=== PATIENT | male | born 1960 | race Two or more races ===

== ENCOUNTER 2016-09-24 11:31 | Inpatient (IN) | payer MEDICAID ==
[~2016-09-24] VITALS: Ht 175.3 cm; Wt 77.1 kg
[2016-09-24 11:35] VITALS: BP 130/81
[2016-09-24 12:06] LABS: APPEARANCE,URINE CLEAR; KETONES,URINE 1+ (NEGATIVE); LEUKOCYTE ESTERASE ,URINE 1+ (NEGATIVE); MEAN CORPUSCULAR HEMOGLOBIN 27.7 PG (27.0-31.0); MEAN CORPUSCULAR HGB CONC 31.4 G/DL (32.0-36.0); MEAN CORPUSCULAR VOLUME 88 FL (80-99); MEAN PLATELET VOLUME 10.1 FL (6.5-10.1); NITRITE,URINE POSITIVE (NEGATIVE); PH,URINE 6.5 (4.5-8.0); PLATELET COUNT 41 K/UL (150-450); PROTEIN,URINE 1+ (NEGATIVE); RED BLOOD COUNT 2.16 M/UL (4.70-6.10); RED CELL DISTRIBUTION WIDTH 21.4 % (11.6-14.8); UROBILINOGEN,URINE 12 MG/DL (0.0-1.0); WHITE BLOOD COUNT 4.4 K/UL (4.8-10.8)
[2016-09-24 12:12] LABS: INR 1.4 (0.9-1.1); PROTHROMBIN TIME 14.8 SEC (9.30-11.50)
[2016-09-24 12:15] LABS: ICTOTEST POS; RBC,URINE 0-2 /HPF (0 - 0); SQUAMOUS EPITHELIAL CELL,UR FEW /LPF (NONE/OCC)
[2016-09-24 12:17] LABS: ALANINE AMINOTRANSFERASE 14 U/L (3-41); ALBUMIN/GLOBULIN RATIO 0.4 (1.0-2.7); ANION GAP 19 (5-15); ASPARTATE AMINO TRANSFERASE 64 U/L (5-40); CALCIUM 7.4 mg/dL (8.6-10.2); CARBON DIOXIDE 21 mEQ/L (20-30); CHLORIDE 96 mEQ/L (98-107); CREATININE 0.7 mg/dL (0.7-1.2); GLOMERULAR FILTRATION RATE > 60 mL/min (>60); HEMOLYSIS 0; LIPASE 21 U/L (< 60); POTASSIUM 3.5 mEQ/L (3.4-4.9); SODIUM 136 mEQ/L (135-145); TOTAL PROTEIN 6.7 g/dL (6.6-8.7); TROPONIN I < 0.30 ng/mL (<=0.30)
[2016-09-24 12:19] LABS: AMMONIA 76 umol/L (16-60)
[2016-09-24 12:28] LABS: BAND NEUTROPHILS % (MANUAL) 1 % (0-8); EOSINOPHILS % (MANUAL) 1 % (0-3); LYMPHOCYTES % (MANUAL) 32 % (20-45); NEUTROPHILS % (MANUAL) 63 % (45-75); TOTAL CELLS COUNTED 100
[2016-09-24 12:29] LABS: ANISOCYTOSIS 1+; BASOPHILS % (MANUAL) 0 % (0-2); HYPOCHROMASIA 1+; MICROCYTES OCCASIONAL; PLATELET ESTIMATE DECREASED; PLATELET MORPHOLOGY NORMAL
[2016-09-24 12:30] LABS: PATH BLOOD SMEAR/OMC Y
[2016-09-24 12:44] LABS: BILIRUBIN,DIRECT 6.4 mg/dL (0.1-0.3)
--- NOTE | 2016-09-24 13:55 | Emergency Room Report ---
History of Present Illness General Chief Complaint: General Complaint Source: Patient Present Illness HPI Patient is a 56-year-old male who presented after having increased generalized weakness and decreased appetite. Patient poorly had not been eating for approximately one-week. The patient had been increasingly weak and had been falling. Patient fell twice. Patient had reported history of alcohol abuse and drinks daily. The patient has reported last alcohol use yesterday. He had become increasingly confused Allergies: Coded Allergies: No Known Allergies (Unverified , 09/24/16) Patient History Reviewed Nursing Documentation: PMH: Agreed, PSxH: Agreed Nursing Documentation-PMH Past Medical History: No Stated History Review of Systems All Other Systems: limited - by mental status Physical Exam Vital Signs Date Time Temp Pulse Resp B/P Pulse Ox O2 Delivery O2 Flow Rate FiO2 09/24/16 11:32 98.2 104 16 134/81 97 Room Air General Appearance: alert, mild distress, Chronically Ill Eyes: bilateral eye scleral icterus ENT: normal pharynx Neck: supple Respiratory: lungs clear, normal breath sounds Cardiovascular #1: normal peripheral pulses, regular rate, rhythm Gastrointestinal: normal bowel sounds, non tender, soft Musculoskeletal: normal inspection, back normal, gait/station normal Neurologic: normal inspection, alert, motor weakness, other - asterixis Skin: jaundice Medical Decision Making Diagnostic Impression: Primary Impression: Severe anemia Additional Impressions: Pancytopenia Alcohol abuse ER Course Patient presented for generalized weakness. Differential diagnosis included was not limited to anemia, urinary tract infection, electrolyte abnormality, hypothyroidism, myocardial infarction, myasthenia gravis, dehydration, among others. Because of complexity of patient's case laboratory testing and imaging studies were ordered. The patient noted be markedly anemic with a hemoglobin of 6.0 patient was also noted to be thrombocytopenic. The patient was consented for blood. The patient agreed to transfusion. The patient was noted be mildly encephalopathic. CT the head read by radiologist showed atrophic changes without evident intracranial hemorrhage mass effect or edema. Dr. Candido Oneill was contacted for inpatient management EKG Diagnostic Results Rate: normal Rhythm: NSR ST Segments: other - prolonged qt Rhythm Strip Diag. Results EP Interpretation: yes Rhythm: NSR, no PVC's, no ectopy Last Vital Signs Date Time Temp Pulse Resp B/P Pulse Ox O2 Delivery O2 Flow Rate FiO2 09/24/16 11:35 98.2 101 16 130/81 95 Room Air Status: unchanged Disposition: ADMITTED INPATIENT Condition: Serious Referrals: NOT CHOSEN IPA/,REFERRING (PCP) Ken Shaffer Sep 24, 2016 13:55
[2016-09-24] MEDS ORDERED: FISH OIL300 M1 PO (14:56)
[2016-09-24 15:24] VITALS: BP 116/80
--- NOTE | 2016-09-24 15:41 | History & Physical ---
History and Physical History & Physicial HP dictated #[id number] ALICIA DASH Sep 24, 2016 15:41
[2016-09-24] MEDS ORDERED: Milk of Magnesia 30ml Ud ORAL PRN (15:45)
[2016-09-24] MEDS ORDERED: LORazepam Inj 2mg/ml 1ml IV PRN (15:45)
[2016-09-24 16:00] VITALS: BP 126/77
[2016-09-24] MEDS: Pantoprazole Inj IV SCH (16:00)
[2016-09-24 16:40] VITALS: BP 126/75
[2016-09-24 21:00] VITALS: BP 126/69
--- NOTE | 2016-09-24 21:15 | History and Physical Report ---
DATE OF ADMISSION: 09/24/2016 CHIEF COMPLAINT: Weakness and frequent falls. HISTORY OF PRESENT ILLNESS: This is a 56-year-old male with a history of alcohol abuse, who presents to the emergency room with frequent falls and weakness. He has been found to be anemic with hematocrit of 19 and hemoglobin of 6. He is also in liver failure with bilirubin of 9.4. The patient reported that he was in [facility] about a year ago and he was never told about the problem of his liver. Currently, the patient drinks jimmy heavily and has been using alcohol for about 20 years now. PAST MEDICAL HISTORY: Noncontributory except above. MEDICATIONS: None. ALLERGIES: No known drug allergies. SOCIAL HISTORY: The patient lives with some friends. He is an ex-smoker. REVIEW OF SYSTEMS: As above. PHYSICAL EXAMINATION: GENERAL: The patient is a 56-year-old man, in no acute distress. VITAL SIGNS: Blood pressure is 116/80, pulse 88, and temperature 97.8 degrees. HEENT: Pale conjunctivae. Anicteric sclerae. NECK: Supple. LUNGS: Clear to auscultation. HEART: S1 and S2 are without murmurs or rubs. ABDOMEN: Soft and nontender. EXTREMITIES: Bilateral pedal edema. LABORATORY FINDINGS: Chemistry panel shows serum sodium of 136, potassium 3.5, chloride 96, CO2 21, BUN 6, and creatinine 0.7. Albumin is 7.6. Total bilirubin is 9.4. Direct bilirubin is 6.4. AST is 64 and ALT 13. Lipase is 21. ASSESSMENT: This is a 56-year-old male with a history of alcohol abuse, who was admitted with severe anemia and it could be iron deficiency or gastrointestinal bleed. The patient could have B12 deficiency, although less likely. He has also liver failure, possibly alcoholic cirrhosis of the liver. PLAN: The patient will be admitted. He has been transfused. His hematocrit and hemoglobin will be followed closely. We may give him lactulose for his elevated ammonia level, however his mentation is clear at this point. Candido Oneill M.D. : Jolynn JOB#: [id number] CC: REGULO
[2016-09-25] VITALS: BP 118/68
[2016-09-25 04:00] VITALS: BP 123/67
[2016-09-25 07:17] LABS: MEAN CORPUSCULAR HEMOGLOBIN 28.7 PG (27.0-31.0); MEAN CORPUSCULAR HGB CONC 32.5 G/DL (32.0-36.0); MEAN CORPUSCULAR VOLUME 88 FL (80-99); MEAN PLATELET VOLUME 8.9 FL (6.5-10.1); PLATELET COUNT 24 K/UL (150-450); RED CELL DISTRIBUTION WIDTH 18.7 % (11.6-14.8); WHITE BLOOD COUNT 3.3 K/UL (4.8-10.8)
[2016-09-25 07:28] LABS: ALANINE AMINOTRANSFERASE 13 U/L (3-41); ALBUMIN/GLOBULIN RATIO 0.5 (1.0-2.7); ANION GAP 16 (5-15); ASPARTATE AMINO TRANSFERASE 60 U/L (5-40); CALCIUM 7.3 mg/dL (8.6-10.2); CARBON DIOXIDE 22 mEQ/L (20-30); CHLORIDE 101 mEQ/L (98-107); CREATININE 0.6 mg/dL (0.7-1.2); GLOMERULAR FILTRATION RATE > 60 mL/min (>60); HEMOLYSIS 3; POTASSIUM 3.5 mEQ/L (3.4-4.9); SODIUM 139 mEQ/L (135-145)
[2016-09-25 07:53] LABS: BILIRUBIN,DIRECT 5.9 mg/dL (0.1-0.3)
[2016-09-25 08:00] VITALS: BP 143/90
[2016-09-25 08:02] LABS: HEMOGLOBIN A1C 4.4 % (< 6.0)
--- NOTE | 2016-09-25 09:20 | Diagnostic Imaging Report ---
Indication: Head pain Technique: Continuous helical CT scanning of the head was performed utilizing automated exposure control without intravenous contrast material. Axial and coronal reconstructions were obtained. Comparison: None CT dose: Total DLP 1351 mGycm; CTDI vol 70.4 mGy Findings: There is no acute intracranial hemorrhage, mass effect or cortical edema. The ventricles, cisterns and sulci are prominent consistent with atrophy. Minimal periventricular hypoattenuation is seen, a nonspecific finding, suggestive of chronic ischemic microvascular changes. The posterior fossa and fourth ventricle are unremarkable. Sellar and suprasellar regions are grossly unremarkable. Visualized mastoid air cells and paranasal sinuses are unremarkable. No focal lesions of the bony calvarium or soft tissues of the scalp are seen. Impression: No evidence of acute intracranial hemorrhage, mass effect or cortical edema. MRI may be obtained for more sensitive evaluation as clinically indicated. Atrophy and mild nonspecific periventricular hypoattenuation suggestive of chronic ischemic microvascular changes. The CT scanner at [facility] is accredited by the [employer] and the scans are performed using protocols designed to limit radiation exposure to as low as reasonably achievable to attain images of sufficient resolution adequate for diagnostic evaluation.
[2016-09-25] MEDS: Pantoprazole Inj IV SCH (09:54)
[2016-09-25 10:06] LABS: ANISOCYTOSIS 1+; BAND NEUTROPHILS % (MANUAL) 0 % (0-8); BASOPHILS % (MANUAL) 0 % (0-2); EOSINOPHILS % (MANUAL) 3 % (0-3); HYPOCHROMASIA 1+; LYMPHOCYTES % (MANUAL) 16 % (20-45); NEUTROPHILS % (MANUAL) 76 % (45-75); PLATELET ESTIMATE DECREASED; PLATELET MORPHOLOGY NORMAL; TOTAL CELLS COUNTED 100
--- NOTE | 2016-09-25 10:27 | Diagnostic Imaging Report ---
Indication: Abdominal pain Technique: CT of the abdomen and pelvis utilizing automated exposure control with intravenous contrast. Venous scanning performed. CT dose: Total DLP 1125 mGycm; CTDI vol 18.8 mGy Comparison: None Findings: Lung bases are clear. The liver is enlarged with diffuse fatty infiltration. There is recanalization of the paraumbilical vein. Splenic and upper abdominal gastroesophageal varices are seen with splenorenal shunting. The spleen is mildly enlarged measuring 13 cm. The adrenal glands, kidneys and pancreas are grossly unremarkable. Questionable densities are noted in the gallbladder. There is mild wall thickening versus underdistention of the stomach. There is mild apparent wall thickening of the ascending and proximal transverse colon. Mild to moderate ascites is seen. Atherosclerotic changes are present. The abdominal aorta is normal in caliber. There is no free intraperitoneal air. Bladder is not well distended. Small fat-containing bilateral inguinal hernias are seen. There is subcutaneous edema. Degenerative changes of the spine are present. Impression: Wall thickening of the ascending and proximal transverse colon could represent nonspecific colitis. Clinical correlation recommended. Hepatosplenomegaly. Diffuse fatty infiltration of the liver. Portal hypertension with upper abdominal varices and mild to moderate ascites. Wall thickening versus underdistention of the stomach although the latter is favored. Clinical correlation recommended. Other findings as above. The CT scanner at [facility] is accredited by the [employer] and the scans are performed using protocols designed to limit radiation exposure to as low as reasonably achievable to attain images of sufficient resolution adequate for diagnostic evaluation.
[2016-09-25 11:39] VITALS: BP 126/77
[2016-09-25] MEDS ORDERED: Phytonadione 10 mg/mL 1ml amp SUBQ ONE (12:15)
--- NOTE | 2016-09-25 12:34 | General Progress Note ---
Assessment/Plan Problem List: (1) Weakness ICD Codes: R53.1 - Weakness SNOMED: 47436522 (2) Severe anemia ICD Codes: D64.9 - Anemia, unspecified SNOMED: 314152739 (3) Alcohol abuse ICD Codes: F10.10 - Alcohol abuse, uncomplicated SNOMED: 06574164 (4) Pancytopenia ICD Codes: D61.818 - Other pancytopenia SNOMED: 010846332 (5) Alcoholic liver disease ICD Codes: K70.9 - Alcoholic liver disease, unspecified SNOMED: 41206524 Assessment/Plan change to regular diet follow H/H check B12 and folate Advised to stop drinking Subjective Allergies: Coded Allergies: No Known Allergies (Unverified , 09/24/16) Subjective feels weak Objective Last 24 Hour Vital Signs Date Time Temp Pulse Resp B/P Pulse Ox O2 Delivery O2 Flow Rate FiO2 09/25/16 11:39 98.4 104 18 126/77 94 Room Air 09/25/16 08:00 97.3 109 20 143/90 96 Room Air 09/25/16 04:00 97.7 89 20 123/67 96 Room Air 09/25/16 00:00 97.5 95 20 118/68 94 Room Air 09/24/16 21:00 97.2 96 20 126/69 97 Room Air 09/24/16 16:40 96.6 88 18 126/75 99 Room Air 09/24/16 16:00 97.2 88 18 126/77 96 Room Air 09/24/16 15:55 87 12 130/64 96 Room Air 09/24/16 15:24 97.8 88 13 116/80 99 Room Air 09/24/16 15:00 97.9 87 12 09/24/16 14:45 98.0 91 14 09/24/16 14:30 97.6 88 15 09/24/16 14:25 97.9 88 16 09/24/16 14:15 98.2 89 15 09/24/16 14:01 97.8 90 14 Intake and Output 09/24/16 09/25/16 19:00 07:00 Intake Total 0 ml 500 ml Output Total 30 ml Balance -30 ml 500 ml Intake Oral 0 ml Blood Product 500 ml Output Urine Total 30 ml # Voids 1 Laboratory Tests 09/25/16 05:15: White Blood Count 3.3L, Red Blood Count 2.50L, Hemoglobin 7.2L, Hematocrit 22.1L , Mean Corpuscular Volume 88, Mean Corpuscular Hemoglobin 28.7, Mean Corpuscular Hemoglobin Concent 32.5, Red Cell Distribution Width 18.7H, Platelet Count 24L, Mean Platelet Volume 8.9, Neutrophils (%) (Auto) , Lymphocytes (%) (Auto) , Monocytes (%) (Auto) , Eosinophils (%) (Auto) , Basophils (%) (Auto) , Differential Total Cells Counted 100, Neutrophils % ( Manual) 76H, Lymphocytes % (Manual) 16L, Monocytes % (Manual) 5, Eosinophils % ( Manual) 3, Basophils % (Manual) 0, Band Neutrophils 0, Platelet Estimate DecreasedL, Platelet Morphology Normal, Hypochromasia 1+, Anisocytosis 1+, Sodium Level 139, Potassium Level 3.5, Chloride Level 101, Carbon Dioxide Level 22, Anion Gap 16H, Blood Urea Nitrogen 5L, Creatinine 0.6L, Estimat Glomerular Filtration Rate > 60, Glucose Level 60L, Hemoglobin A1c 4.4, Calcium Level 7.3L , Total Bilirubin 8.7H, Direct Bilirubin 5.9H, Aspartate Amino Transf (AST/SGOT ) 60H, Alanine Aminotransferase (ALT/SGPT) 13, Alkaline Phosphatase 98, Total Protein 6.0L, Albumin 2.0L, Globulin 4.0, Albumin/Globulin Ratio 0.5L Height (Feet): 5 Height (Inches): 9.00 Weight (Pounds): 170 Cardiovascular: normal rate Respiratory/Chest: lungs clear Edema: 2+ Generalized ALICIA DASH Sep 25, 2016 12:34
[2016-09-25 15:53] VITALS: BP 122/75
[2016-09-25 20:00] VITALS: BP 129/78
[2016-09-25] MEDS: Zoysn 3.37gm in D5W 110ml IVPB SCH (22:33)
[2016-09-26] VITALS: BP 138/86
[2016-09-26 01:15] LABS: APPEARANCE,URINE CLOUDY; KETONES,URINE 1+ (NEGATIVE); LEUKOCYTE ESTERASE ,URINE 2+ (NEGATIVE); NITRITE,URINE POSITIVE (NEGATIVE); PH,URINE 5 (4.5-8.0); PROTEIN,URINE 2+ (NEGATIVE); UROBILINOGEN,URINE 12 MG/DL (0.0-1.0)
[2016-09-26 01:25] LABS: BACTERIA,URINE FEW /HPF; MUCUS,URINE MANY /LPF (NONE/OCC); SQUAMOUS EPITHELIAL CELL,UR FEW /LPF (NONE/OCC)
[2016-09-26 01:26] LABS: ICTOTEST POS
[2016-09-26 04:00] VITALS: BP 138/83
[2016-09-26] MEDS: Zoysn 3.37gm in D5W 110ml IVPB SCH ×3 (05:07→20:59)
[2016-09-26 06:53] LABS: ALANINE AMINOTRANSFERASE 14 U/L (3-41); ALBUMIN/GLOBULIN RATIO 0.5 (1.0-2.7); ANION GAP 14 (5-15); ASPARTATE AMINO TRANSFERASE 61 U/L (5-40); CALCIUM 7.3 mg/dL (8.6-10.2); CARBON DIOXIDE 23 mEQ/L (20-30); CHLORIDE 96 mEQ/L (98-107); CREATININE 0.7 mg/dL (0.7-1.2); GLOMERULAR FILTRATION RATE > 60 mL/min (>60); HEMOLYSIS 2; POTASSIUM 3.2 mEQ/L (3.4-4.9); SODIUM 133 mEQ/L (135-145); TOTAL PROTEIN 6.3 g/dL (6.6-8.7)
[2016-09-26 06:56] LABS: MEAN CORPUSCULAR HEMOGLOBIN 28.3 PG (27.0-31.0); MEAN CORPUSCULAR HGB CONC 31.9 G/DL (32.0-36.0); MEAN CORPUSCULAR VOLUME 89 FL (80-99); MEAN PLATELET VOLUME 9.5 FL (6.5-10.1); PLATELET COUNT 24 K/UL (150-450); RED BLOOD COUNT 2.64 M/UL (4.70-6.10); RED CELL DISTRIBUTION WIDTH 19.8 % (11.6-14.8); WHITE BLOOD COUNT 3.4 K/UL (4.8-10.8)
[2016-09-26 07:07] LABS: BILIRUBIN,DIRECT 8.1 mg/dL (0.1-0.3)
[2016-09-26 07:22] LABS: HEMOLYSIS 0; IRON 91 ug/dL (59-158); TOTAL IRON BINDING CAPACITY 157 ug/dL (250-400)
[2016-09-26 08:00] VITALS: BP 131/86
[2016-09-26 08:16] LABS: ANISOCYTOSIS 1+; BAND NEUTROPHILS % (MANUAL) 0 % (0-8); BASOPHILS % (MANUAL) 0 % (0-2); EOSINOPHILS % (MANUAL) 1 % (0-3); HYPOCHROMASIA 1+; LYMPHOCYTES % (MANUAL) 14 % (20-45); NEUTROPHILS % (MANUAL) 79 % (45-75); PLATELET ESTIMATE DECREASED; PLATELET MORPHOLOGY NORMAL; POLYCHROMASIA OCCASIONAL; TOTAL CELLS COUNTED 100
[2016-09-26] MEDS: Pantoprazole Inj IV SCH (09:05)
[2016-09-26 11:37] VITALS: BP 137/86
--- NOTE | 2016-09-26 12:29 | General Progress Note ---
Assessment/Plan Problem List: (1) Weakness ICD Codes: R53.1 - Weakness SNOMED: 08632049 (2) Severe anemia ICD Codes: D64.9 - Anemia, unspecified SNOMED: 843329369 (3) Alcohol abuse ICD Codes: F10.10 - Alcohol abuse, uncomplicated SNOMED: 08644550 (4) Pancytopenia ICD Codes: D61.818 - Other pancytopenia SNOMED: 743844099 (5) Alcoholic liver disease ICD Codes: K70.9 - Alcoholic liver disease, unspecified SNOMED: 64645577 (6) Fever ICD Codes: R50.9 - Fever, unspecified SNOMED: 207989358 Assessment/Plan check cultures Abxs follow H/H check B12 and folate Subjective Allergies: Coded Allergies: No Known Allergies (Unverified , 09/24/16) Subjective slightly better Objective Last 24 Hour Vital Signs Date Time Temp Pulse Resp B/P Pulse Ox O2 Delivery O2 Flow Rate FiO2 09/26/16 11:37 98.6 102 20 137/86 97 Room Air 09/26/16 08:00 97.7 115 18 131/86 99 Room Air 09/26/16 04:00 99.7 101 18 138/83 93 Room Air 09/26/16 00:00 97.9 86 18 138/86 95 Room Air 09/26/16 00:00 97.9 86 18 138/86 95 Room Air 09/25/16 21:46 100.0 09/25/16 20:00 100.7 113 20 129/78 94 Room Air 09/25/16 15:53 99.7 102 18 122/75 97 Room Air Intake and Output 09/25/16 09/26/16 19:00 07:00 Intake Total 960 ml 137.5 ml Balance 960 ml 137.5 ml Intake Oral 960 ml IV Total 137.5 ml # Voids 4 2 Laboratory Tests 09/25/16 20:14: Urine Color Brown, Urine Appearance Cloudy, Urine pH 5, Urine Specific Stur[place] 1.020, Urine Protein 2+H, Urine Glucose (UA) Negative, Urine Ketones 1+H, Urine Occult Blood 1+H, Urine Nitrite PositiveH, Urine Bilirubin 3+H, Urine Ictotest Pos, Urine Urobilinogen 12H, Urine Leukocyte Esterase 2+H, Urine RBC 2-4H, Urine WBC 2-4, Urine Squamous Epithelial Cells Few, Urine Bacteria Few, Urine Mucus ManyH 09/26/16 05:25: White Blood Count 3.4L, Red Blood Count 2.64L, Hemoglobin 7.5L, Hematocrit 23.4L , Mean Corpuscular Volume 89, Mean Corpuscular Hemoglobin 28.3, Mean Corpuscular Hemoglobin Concent 31.9L, Red Cell Distribution Width 19.8H, Platelet Count 24L, Mean Platelet Volume 9.5, Neutrophils (%) (Auto) , Lymphocytes (%) (Auto) , Monocytes (%) (Auto) , Eosinophils (%) (Auto) , Basophils (%) (Auto) , Differential Total Cells Counted 100, Neutrophils % ( Manual) 79H, Lymphocytes % (Manual) 14L, Monocytes % (Manual) 6, Eosinophils % ( Manual) 1, Basophils % (Manual) 0, Band Neutrophils 0, Platelet Estimate DecreasedL, Platelet Morphology Normal, Polychromasia Occasional, Hypochromasia 1+, Anisocytosis 1+, Sodium Level 133L, Potassium Level 3.2L, Chloride Level 96L , Carbon Dioxide Level 23, Anion Gap 14, Blood Urea Nitrogen 5L, Creatinine 0.7 , Estimat Glomerular Filtration Rate > 60, Glucose Level 79, Calcium Level 7.3L , Iron Level 91, Total Iron Binding Capacity 157L, Percent Iron Saturation 58H, Unsaturated Iron Binding 66L, Total Bilirubin 12.1H, Direct Bilirubin 8.1H, Aspartate Amino Transf (AST/SGOT) 61H, Alanine Aminotransferase (ALT/SGPT) 14, Alkaline Phosphatase 104, Total Protein 6.3L, Albumin 2.1L, Globulin 4.2, Albumin/Globulin Ratio 0.5L, Vitamin B12 Level 1553H, Folate [Pending] Height (Feet): 5 Height (Inches): 9.00 Weight (Pounds): 170 Cardiovascular: normal rate Respiratory/Chest: lungs clear Edema: 2+ Generalized ALICIA DASH Sep 26, 2016 12:29
--- NOTE | 2016-09-26 15:10 | Wound Care Consultation ---
Wound Assessment Wound Assessment #1: Wound Number: #1 Wound Present on Admission: Yes New Wound: No Status Change of Wound: No Wound Location Body Site Modif: left, mid Wound Location Body Site: arm Wound Type: traumatic injury Elena Test: Does not Elena Wound Thickness: Full Thickness Wound Length: 7.0 Wound Width: 2.0 Wound Depth: utd Percent of Wound Chrisman/Red: 50 Percent of Wound Black/Brown: 50 - scab present. Wound Drainage Description: Serosanguineous Wound Drainage Amount: Moderate Wound Drainage Odor: None/Absent Tissue Surrounding Wound: Erythemic Wound General Appearance: Reddened, Blackened, Draining Wound Assessment #2: Wound Number: #2 Wound Present on Admission: Yes New Wound: No Status Change of Wound: No Wound Location Body Site Modif: left, anterior Wound Location Body Site: hand Wound Type: scab Elena Test: Does not Elena Wound Thickness: Full Thickness Wound Length: 1.0 Wound Width: 1.0 Wound Depth: utd Percent of Wound Black/Brown: 100 - scab Wound Drainage Amount: None Wound Drainage Odor: None/Absent Tissue Surrounding Wound: Intact Wound General Appearance: Blackened, Open to air, Clean/Dry Wound Assessment #3: Wound Number: #3 Wound Present on Admission: Yes New Wound: No Status Change of Wound: No Wound Location Body Site Modif: left Wound Location Body Site: knee Wound Type: traumatic injury - noted with scab. Elena Test: Does not Elena Wound Thickness: Full Thickness Wound Length: 2.0 Wound Width: 2.0 Wound Depth: utd Percent of Wound Black/Brown: 100 - scab Wound Drainage Amount: None Wound Drainage Odor: None/Absent Tissue Surrounding Wound: Erythemic Wound General Appearance: Open to air, Clean/Dry Wound Assessment #4: Wound Number: #4 Wound Present on Admission: Yes New Wound: No Status Change of Wound: No Wound Location Body Site Modif: right Wound Location Body Site: knee Wound Type: traumatic injury - scab Elena Test: Does not Elena Wound Thickness: Full Thickness Wound Length: 2.0 Wound Width: 2.0 Wound Depth: utd Percent of Wound Black/Brown: 100 - scab. Wound Drainage Amount: None Wound Drainage Odor: None/Absent Tissue Surrounding Wound: Intact Wound General Appearance: Reddened, Blackened Wound Comment #1 left mid arm traumatic injury wound. #2 left anterior hand scab. #3 left knee scab. #4 right knee scab. Recommendation. -Local wound care as ordered. -Keep scabs clean and dry. -Turn and reposition. -Optimize nutrition. -Offload affected sites. -Assess and notify MD for any changes of condition to skin. ADILSON JEFFRIES Sep 26, 2016 15:10
[2016-09-26 16:00] VITALS: BP 131/77
[2016-09-26] MEDS ORDERED: Tubing IV Secondary IV ONE (16:35)
[2016-09-26] MEDS ORDERED: NS 275ml ONE (16:35)
[2016-09-26 20:00] VITALS: BP 122/80
[2016-09-27] VITALS: BP 136/84
[2016-09-27 04:00] VITALS: BP 141/83
[2016-09-27] MEDS: Zoysn 3.37gm in D5W 110ml IVPB SCH ×2 (05:21→15:27)
[2016-09-27 07:29] VITALS: BP 135/95
[2016-09-27] MEDS: Pantoprazole Inj IV SCH (08:45)
[2016-09-27 11:19] VITALS: BP 127/82
[2016-09-27] MEDS ORDERED: CIPRO250 MG/51 PO (12:04)
[2016-09-27 12:08] LABS: OTHERS PATHOLOGIST COMMENT
--- NOTE | 2016-09-27 12:10 | Consultation ---
Consult Note Assessment/Plan Dc dictated # [id number] ALICIA DASH Sep 27, 2016 12:10
[2016-09-27 16:06] VITALS: BP 127/78
--- NOTE | 2016-09-28 03:00 | Discharge Summary ---
DATE OF ADMISSION: 09/24/2016 DATE OF DISCHARGE: 09/27/2016 CHIEF COMPLAINT: Generalized weakness due to decreased appetite and falls. HISTORY OF PRESENT ILLNESS: This is a 56-year-old male, who was admitted with above symptoms. The patient has history of alcohol abuse. He was found to have alcoholic liver disease and urinary tract infection. HOSPITAL COURSE: The patient was started on IV antibiotics after he spiked fevers in the hospital. He also was found pancytopenic. He was transfused two units of packed red blood cells for severe anemia with hematocrit of 19 and hemoglobin of 6. His hemoglobin and hematocrit remained stable. His hemoglobin was 7.5 with hematocrit of 23.4 as of 09/26/2016. His iron panel did not show any iron-deficiency anemia. His iron saturation was 66%. His ammonia level was initially high, but the patient was not started on any lactulose. It was 76, however, the patient did not have any change in mental status. The patient was told that he had to stop drinking alcohol multiple times. Eventually, the patient was discharged home in stable condition. DISCHARGE DIAGNOSES: 1. Weakness as a result of anemia as well as alcoholic liver disease. 2. Anemia requiring transfusion. 3. Alcohol abuse. 4. Pancytopenia, again this is related to his alcohol consumption. 5. Fevers and urinary tract infection. The patient was given Zosyn during his hospitalization. DISCHARGE MEDICATIONS: The patient is supposed to go home with Cipro 250 mg twice a day for the next five days. Candido Oneill M.D. DR: Benedicto JOB#: [id number] CC: REGULO
--- NOTE | 2016-09-28 15:40 | Cardiology Report ---
APPROVED REPORT EKG Measurement Heart [id number] Normal sinus rhythm Prolonged QT Abnormal ECG
== END 2016-09-27 16:45 | disposition home or self-care (01) | DRG 660 ==
LOC: EMR 11:45 → EDBEDREQSVC 12:21 → 2E 13:09 → EDBEDREQ 13:47 → 4E 16:43
PROC: 30233N1 Transfusion of Nonautologous Red Blood Cells into Peripheral Vein, Percutaneous Approach (ICD-10-PCS; principal; 2016-09-24)
DX: D61.818 Other pancytopenia (principal); K70.30 Alcoholic cirrhosis of liver without ascites; D64.9 Anemia, unspecified; F10.10 Alcohol abuse, uncomplicated; N39.0 Urinary tract infection, site not specified; Z91.81 History of falling; Z87.891 Personal history of nicotine dependence; R50.9 Fever, unspecified; R53.1 Weakness
CPT/HCPCS: 36415; 70450; 74177; 80053; 80329; 81001; 81003; 82140; 82248; 82607; 82746; 82962; 83036; 83540; 83550; 83690; 84484; 85007; 85025; 85060; 85610; 85730; 86850; 86900; 86901; 86920; 87040; 87086; 87181; 93005

== ENCOUNTER 2016-10-10 00:47 | Inpatient (IN) | payer MEDICAID ==
[~2016-10-10] VITALS: Ht 175.3 cm; Wt 95.7 kg
[~2016-10-10 00:47] MED LIST: CIPRO250 MG/51 PO; FISH OIL300 M1 PO
[2016-10-10] MEDS ORDERED: NKM (00:56)
[2016-10-10] MEDS ORDERED: Phytonadione 10 mg/mL 1ml amp SUBQ ONE (01:15)
[2016-10-10 01:47] LABS: BASOPHILS % (AUTO) 2.8 % (0.0-2.0); EOSINOPHILS % (AUTO) 4.9 % (0.0-3.0); LYMPHOCYTES % (AUTO) 10.1 % (20.0-45.0); MEAN CORPUSCULAR HEMOGLOBIN 29.1 PG (27.0-31.0); MEAN CORPUSCULAR HGB CONC 31.6 G/DL (32.0-36.0); MEAN CORPUSCULAR VOLUME 92 FL (80-99); MEAN PLATELET VOLUME 6.5 FL (6.5-10.1); MONOCYTES % (AUTO) 9.3 % (1.0-10.0); NEUTROPHILS % (AUTO) 72.9 % (45.0-75.0); PLATELET COUNT 131 K/UL (150-450); RED BLOOD COUNT 2.78 M/UL (4.70-6.10); RED CELL DISTRIBUTION WIDTH 17.6 % (11.6-14.8); WHITE BLOOD COUNT 6.8 K/UL (4.8-10.8)
[2016-10-10 01:54] LABS: INR 1.4 (0.9-1.1); PROTHROMBIN TIME 15.2 SEC (9.30-11.50)
[2016-10-10 02:02] LABS: ALBUMIN/GLOBULIN RATIO 0.5 (1.0-2.7); CALCIUM 7.9 mg/dL (8.6-10.2); CREATININE 1.7 mg/dL (0.7-1.2); GLOMERULAR FILTRATION RATE 41.9 mL/min (>60); POTASSIUM 3.2 mEQ/L (3.4-4.9); TOTAL PROTEIN 6.4 g/dL (6.6-8.7)
[2016-10-10 02:04] LABS: TROPONIN I < 0.30 ng/mL (<=0.30)
--- NOTE | 2016-10-10 02:15 | Emergency Room Report ---
History of Present Illness General Chief Complaint: Edema Source: Patient Present Illness HPI The patient was admitted to this hospital for low hemoglobin. He was transfused and discharged. This is after 3 days of hospitalization. Since he went home in his belly has been swelling and also has edema of his legs. He is having difficulty ambulating because of the pain in his extremities and abdomen. He states his stools have been yellow in color. He denies any fevers. The pain is more pressure in his abdomen. Denies any cough or chest pain. The patient stop drinking about one month ago. His urine has been dark and his stools have been beige and yellow. Decreased urine output and it has been dark. No dysuria. He was discharged on Cipro. Unknown if taking. Family state denial and confabulation. These are d/c diagnoses: DISCHARGE DIAGNOSES: 1. Weakness as a result of anemia as well as alcoholic liver disease. 2. Anemia requiring transfusion. 3. Alcohol abuse. 4. Pancytopenia, again this is related to his alcohol consumption. 5. Fevers and urinary tract infection. The patient was given Zosyn during his hospitalization. Allergies: Coded Allergies: No Known Allergies (Unverified , 09/24/16) Patient History Past Medical History: see triage record, old chart reviewed Social History: Reports: alcohol use - stopped 1 month ago Social History Narrative with grandsons Reviewed Nursing Documentation: PMH: Agreed, PSxH: Agreed Nursing Documentation-PMH Past Medical History: No Stated History Hx Cardiac Problems: No Hx Cancer: No Hx Gastrointestinal Problems: No Hx Neurological Problems: No Review of Systems All Other Systems: negative except mentioned in HPI Physical Exam Vital Signs Date Time Temp Pulse Resp B/P Pulse Ox O2 Delivery O2 Flow Rate FiO2 10/10/16 00:50 98.2 91 16 155/89 98 Room Air Sp02 EP Interpretation: reviewed, normal General Appearance: no apparent distress, GCS 15, Chronically Ill Head: normocephalic Eyes: bilateral eye PERRL, bilateral eye normal inspection, bilateral eye scleral icterus ENT: moist mucus membranes Neck: supple Respiratory: lungs clear, normal breath sounds, no respiratory distress Cardiovascular #1: regular rate, rhythm Cardiovascular #2: 2+ radial (R) Gastrointestinal: normal inspection, normal bowel sounds, distended - fluid wave, other - fluid wave Musculoskeletal: back normal, gait/station normal, normal range of motion Neurologic: alert, motor strength/tone normal, other - asterixis Psychiatric: no suicidal/homicidal ideation, other - denial Reflexes: 2+ knee (R), 2+ knee (L) Skin: warm/dry, jaundice, abrasions - LE and pale Medical Decision Making Diagnostic Impression: Primary Impression: Alcoholic liver disease Additional Impressions: Ascites Qualified Codes: K70.31 - Alcoholic cirrhosis of liver with ascites Coagulopathy Acute renal failure Qualified Codes: N17.9 - Acute kidney failure, unspecified Anemia Qualified Codes: D64.9 - Anemia, unspecified ER Course The patient presents with worsening ascites and edema which has begun after discharge after blood transfusions. The patient denies any alcoholic liver disease, but from prior documentation it seems this is the problem. The patient will have emergent evaluation to assess electrolyte status, coagulopathy and hemoglobin. In addition he was discharged on antibiotics for urinary tract infection. H&H is improved since discharge. Coagulopathy. Although ammonia normal, concern over encephalopathy. Patient cooperative. Renal function worse. Gentle IV hydration. Tx vitamin K. Admit tele Dr. Gamez. Laboratory Tests Test 10/10/16 01:14 White Blood Count 6.8 K/UL (4.8-10.8) Red Blood Count 2.78 M/UL (4.70-6.10) L Hemoglobin 8.1 G/DL (14.2-18.0) L Hematocrit 25.6 % (42.0-52.0) L Mean Corpuscular Volume 92 FL (80-99) Mean Corpuscular Hemoglobin 29.1 PG (27.0-31.0) Mean Corpuscular Hemoglobin Concent 31.6 G/DL (32.0-36.0) L Red Cell Distribution Width 17.6 % (11.6-14.8) H Platelet Count 131 K/UL (150-450) L Mean Platelet Volume 6.5 FL (6.5-10.1) Neutrophils (%) (Auto) 72.9 % (45.0-75.0) Lymphocytes (%) (Auto) 10.1 % (20.0-45.0) L Monocytes (%) (Auto) 9.3 % (1.0-10.0) Eosinophils (%) (Auto) 4.9 % (0.0-3.0) H Basophils (%) (Auto) 2.8 % (0.0-2.0) H Prothrombin Time 15.2 SEC (9.30-11.50) H Prothrombin Time INR 1.4 (0.9-1.1) H PTT 45 SEC (23-33) H Sodium Level 132 mEQ/L (135-145) L Potassium Level 3.2 mEQ/L (3.4-4.9) L Chloride Level 98 mEQ/L (98-107) Carbon Dioxide Level 20 mEQ/L (20-30) Anion Gap 14 (5-15) Blood Urea Nitrogen 26 mg/dL (7-23) H Creatinine 1.7 mg/dL (0.7-1.2) H Estimate Glomerular Filtration Rate 41.9 mL/min (>60) Glucose Level 95 mg/dL (74-106) Calcium Level 7.9 mg/dL (8.6-10.2) L Total Bilirubin 13.5 mg/dL (0.0-1.2) H Direct Bilirubin Pending Aspartate Amino Transferase (AST) 56 U/L (5-40) H Alanine Aminotransferase (ALT) 15 U/L (3-41) Alkaline Phosphatase 119 U/L (40-129) Ammonia 45 umol/L (16-60) Troponin I < 0.30 ng/mL (<=0.30) Total Protein 6.4 g/dL (6.6-8.7) L Albumin 2.2 g/dL (3.5-5.2) L Globulin 4.2 g/dL Albumin/Globulin Ratio 0.5 (1.0-2.7) L Lipase 34 U/L (< 60) EKG Diagnostic Results Rate: normal Rhythm: NSR ST Segments: no acute changes Rhythm Strip Diag. Results EP Interpretation: yes Rhythm: NSR, no PVC's, no ectopy Chest X-Ray Diagnostic Results Chest X-Ray Diagnostic Results : Chest X-Ray Ordered: Yes # of Views/Limited/Complete: 1 View EP Interpretation: Yes Interpretation: no consolidation, no effusion, no pneumothorax, other - ascites Indication: Other Impression: Other Interpreting ER Provider: Electronically signed by Juanpablo Easton MD Other X-Ray Diagnostic Results Other X-Ray Diagnostic Results : # of Views/Limited Vs Complete: 1 View EP Interpretation: Yes Interpretation: no fractures, no dislocation, no soft tissue swelling, other - Ascites Indication: Swelling Impression: Other Interpreting ER Provider: Electronically signed by Juanpablo Easton MD Last Vital Signs Date Time Temp Pulse Resp B/P Pulse Ox O2 Delivery O2 Flow Rate FiO2 10/10/16 03:17 98.8 79 17 149/92 99 Room Air Status: improved Disposition: ADMITTED INPATIENT Condition: Serious Referrals: NOT CHOSEN MOHAMUD/,REFERRING (PCP) Juanpablo Easton M.D. Oct 10, 2016 02:15
[2016-10-10 03:17] VITALS: BP 149/92
[2016-10-10 04:48] LABS: BILIRUBIN,DIRECT 8.5 mg/dL (0.1-0.3)
[2016-10-10 05:21] VITALS: BP 127/76
[2016-10-10 05:37] LABS: APPEARANCE,URINE CLEAR; KETONES,URINE NEGATIVE (NEGATIVE); LEUKOCYTE ESTERASE ,URINE NEGATIVE (NEGATIVE); NITRITE,URINE NEGATIVE (NEGATIVE); PH,URINE 6 (4.5-8.0); PROTEIN,URINE NEGATIVE (NEGATIVE); UROBILINOGEN,URINE 1 MG/DL (0.0-1.0)
[2016-10-10 05:51] LABS: BACTERIA,URINE FEW /HPF; RBC,URINE 15-20 /HPF (0 - 0); SQUAMOUS EPITHELIAL CELL,UR FEW /LPF (NONE/OCC); TRANSITIONAL EPI CELLS,URINE FEW /LPF; WBC,URINE 0-2 /HPF (0 - 0)
[2016-10-10 06:09] VITALS: BP 155/91
[2016-10-10 06:41] LABS: ICTOTEST NEGATIVE
[2016-10-10] MEDS ORDERED: Zolpidem 5mg tab ORAL PRN (07:15)
[2016-10-10] MEDS ORDERED: LORazepam 1mg tab ORAL PRN (07:15)
[2016-10-10 08:49] VITALS: BP 138/89
--- NOTE | 2016-10-10 09:44 | Diagnostic Imaging Report ---
Indications: Abdominal pain Technique: AP abdomen Findings: Comparison: None The abdomen is diffusely distended with diffuse hazy groundglass opacity. Centralization of gas-filled, mildly distended small bowel loops. Gas in nondilated colon and rectum. Disc marginal osteophytes in lumbar spine. IMPRESSION: Ascites Nonspecific mild small bowel distention, nonobstructive in appearance Degenerative spondylosis
[2016-10-10 12:00] VITALS: BP 130/82
--- NOTE | 2016-10-10 12:20 | History & Physical ---
History and Physical History & Physicial HP dictated # [id number] ALICIA DASH Oct 10, 2016 12:20
--- NOTE | 2016-10-10 12:40 | Diagnostic Imaging Report ---
Indications: Abdominal distention, ascites Technique: Procedure, indications, risks and alternatives were explained to the patient's family by telephone who understands and gives verbal consent to proceed. The abdomen and pelvis were surveyed sonographically. The skin over the right lower quadrant was sterilely prepped and draped in usual fashion. Skin and subcutaneous soft tissues were infiltrated with 1% lidocaine and sodium bicarbonate. A small dermatotomy was made, through which an 8 [place] paracentesis catheter was advanced under direct sonographic guidance into the peritoneal cavity. Ascites was maximally drained via automated vacuum apparatus. Followup imaging was performed. Catheter was removed. Dermatotomy site was manually compressed to achieve stasis, then cleansed and bandaged. Patient tolerated the procedure well without immediate complications. Findings: Initial imaging demonstrates a moderate amount of ascites throughout the abdomen and pelvis. Post procedure imaging demonstrates near complete resolution of ascites. Paracentesis yields approximately 5600 cc of clear yellow fluid. IMPRESSION: Ultrasound-guided paracentesis yielding 5.6 L of ascites.
[2016-10-10 14:04] LABS: APPEARANCE, BODY FLUID CLEAR; BD FL VOLUME 10 mL
[2016-10-10 14:05] LABS: BD FL SOURCE PARACENTESIS; BODY FLUID NUCLEATED CELLS 29 /CUMM; BODY FLUID RBC 114 /CUMM; MONONUCLEAR WBC 8 %; POLYMORPHONUCLEAR WBC 91 %
[2016-10-10] MEDS ORDERED: NS 275ml ONE (15:39)
[2016-10-10] MEDS ORDERED: Tubing IV Secondary IV ONE (15:39)
--- NOTE | 2016-10-10 17:31 | History and Physical Report ---
DATE OF ADMISSION: 10/10/2016 CHIEF COMPLAINT: Increase abdominal distention and leg edema. HISTORY OF PRESENT ILLNESS: This is a 56-year-old male with history of alcohol abuse and alcoholic liver disease, who was recently admitted to [facility] for anemia, requiring transfusion. The patient was found to have significant alcoholic liver disease, high bilirubin levels, pancytopenia, and urinary tract infection. The patient comes back now with weakness as well as lower extremity swelling, and some abdominal pain as a result of increased abdominal distention. PAST MEDICAL HISTORY: The patient has also history of ascites and history of renal failure. MEDICATIONS: Reviewed in the EMR. ALLERGIES: No known drug allergies. SOCIAL HISTORY: The patient apparently stops drinking and lives at home. REVIEW OF SYSTEMS: Noncontributory except what was mentioned. PHYSICAL EXAMINATION: GENERAL: This is a 56-year-old male, in no acute distress. VITAL SIGNS: Blood pressure is 155/89, pulse 91, temperature 98.2 degrees, and respiratory rate is 16. HEENT: Icteric sclerae. NECK: Supple. LUNGS: Clear to auscultation. HEART: S1 and S2 without murmurs or rubs. ABDOMEN: Soft and distended. EXTREMITIES: Bilateral pedal edema. LABORATORY FINDINGS: CBC shows a WBC of 6.8, hematocrit is 25.6, hemoglobin 8.1, and platelet is 131,000. Chemistry panel shows a serum sodium of 132, potassium 3.2, chloride 98, CO2 20, BUN is 26, and creatinine 1.7. Glucose is 95 and calcium is 7.9. Albumin is 2.2. Lipase is 34. Total bilirubin is 13.5. ASSESSMENT: This is a 56-year-old male with history of alcoholic liver disease. He is admitted with increase abdominal girth as a result of increased ascites and also weakness. He is also anemic, which is chronic. He is not pancytopenic anymore. His white count as well as platelet count are better than the last admission. He has some coagulopathy, INR is 1.4 as a result of alcoholic liver disease. PLAN: The patient will be having paracentesis to improve his symptoms. We will be transfuse as his hematocrit drops further. Physical therapy will be ordered. His chemistry panel will be followed closely. Candido Oneill M.D. DR: KOTA JOB#: [id number] CC:
[2016-10-11] VITALS (7 sets, daily range): BP systolic 115–155; BP diastolic 67–89
[2016-10-11 05:45] LABS: MEAN CORPUSCULAR HEMOGLOBIN 28.7 PG (27.0-31.0); MEAN CORPUSCULAR HGB CONC 31.2 G/DL (32.0-36.0); MEAN CORPUSCULAR VOLUME 92 FL (80-99); MEAN PLATELET VOLUME 8.1 FL (6.5-10.1); PLATELET COUNT 105 K/UL (150-450); RED BLOOD COUNT 2.53 M/UL (4.70-6.10); RED CELL DISTRIBUTION WIDTH 16.7 % (11.6-14.8)
[2016-10-11 06:11] LABS: ALBUMIN/GLOBULIN RATIO 0.4 (1.0-2.7); CALCIUM 7.6 mg/dL (8.6-10.2); CREATININE 1.7 mg/dL (0.7-1.2); GLOMERULAR FILTRATION RATE 41.9 mL/min (>60); POTASSIUM 3.6 mEQ/L (3.4-4.9); TOTAL PROTEIN 5.3 g/dL (6.6-8.7)
[2016-10-11 06:21] LABS: HEMOLYSIS 9; IRON 50 ug/dL (59-158); TOTAL IRON BINDING CAPACITY 160 ug/dL (250-400)
[2016-10-11 06:52] LABS: BILIRUBIN,DIRECT 5.7 mg/dL (0.1-0.3)
[2016-10-11 07:36] LABS: COMMENT,BODY FLUID PATHOLOGIST COMMENT
[2016-10-11 08:13] LABS: ANISOCYTOSIS 1+; BAND NEUTROPHILS % (MANUAL) 0 % (0-8); BASOPHILS % (MANUAL) 0 % (0-2); EOSINOPHILS % (MANUAL) 4 % (0-3); HYPOCHROMASIA 1+; LYMPHOCYTES % (MANUAL) 16 % (20-45); NEUTROPHILS % (MANUAL) 76 % (45-75); PLATELET ESTIMATE DECREASED; PLATELET MORPHOLOGY NORMAL; TOTAL CELLS COUNTED 100
[2016-10-11] MEDS ORDERED: LORazepam 1mg tab ORAL PRN (11:15)
--- NOTE | 2016-10-11 12:56 | General Progress Note ---
Assessment/Plan Problem List: (1) Ascites ICD Codes: R18.8 - Other ascites SNOMED: 491322083 Qualifiers: Qualified Codes: K70.31 - Alcoholic cirrhosis of liver with ascites (2) Alcoholic liver disease ICD Codes: K70.9 - Alcoholic liver disease, unspecified SNOMED: 12606063 (3) Coagulopathy ICD Codes: D68.9 - Coagulation defect, unspecified SNOMED: 13904658 (4) Acute renal failure ICD Codes: N17.9 - Acute kidney failure, unspecified SNOMED: 85790397 Qualifiers: Qualified Codes: N17.9 - Acute kidney failure, unspecified (5) Weakness ICD Codes: R53.1 - Weakness SNOMED: 06548022 (6) Anemia ICD Codes: D64.9 - Anemia, unspecified SNOMED: 733507592 Qualifiers: Qualified Codes: D64.9 - Anemia, unspecified Assessment/Plan transfuse PT follow labs Dc to SNF tomorrow if stable Subjective Allergies: Coded Allergies: No Known Allergies (Unverified , 09/24/16) Subjective better Objective Last 24 Hour Vital Signs Date Time Temp Pulse Resp B/P Pulse Ox O2 Delivery O2 Flow Rate FiO2 10/11/16 11:52 97.7 78 20 136/77 99 Room Air 10/11/16 08:00 97.9 85 20 117/72 99 Room Air 10/11/16 08:00 92 10/11/16 04:00 90 10/11/16 04:00 97.9 84 20 115/67 98 Room Air 10/11/16 00:00 97.9 88 20 137/80 98 Room Air 10/11/16 00:00 77 10/10/16 20:11 83 10/10/16 16:00 87 Intake and Output 10/10/16 10/11/16 19:00 07:00 Intake Total 400 ml Output Total 600 ml 750 ml Balance -200 ml -750 ml Intake Oral 400 ml Output Urine Total 600 ml 750 ml Laboratory Tests 10/11/16 03:50: White Blood Count 5.0, Red Blood Count 2.53L, Hemoglobin 7.3L, Hematocrit 23.2L , Mean Corpuscular Volume 92, Mean Corpuscular Hemoglobin 28.7, Mean Corpuscular Hemoglobin Concent 31.2L, Red Cell Distribution Width 16.7H, Platelet Count 105L, Mean Platelet Volume 8.1, Neutrophils (%) (Auto) , Lymphocytes (%) (Auto) , Monocytes (%) (Auto) , Eosinophils (%) (Auto) , Basophils (%) (Auto) , Differential Total Cells Counted 100, Neutrophils % ( Manual) 76H, Lymphocytes % (Manual) 16L, Monocytes % (Manual) 4, Eosinophils % ( Manual) 4H, Basophils % (Manual) 0, Band Neutrophils 0, Platelet Estimate DecreasedL, Platelet Morphology Normal, Hypochromasia 1+, Anisocytosis 1+, Sodium Level 137, Potassium Level 3.6, Chloride Level 107, Carbon Dioxide Level 21, Anion Gap 9, Blood Urea Nitrogen 25H, Creatinine 1.7H, Estimat Glomerular Filtration Rate 41.9, Glucose Level 81, Calcium Level 7.6L, Iron Level 50L, Total Iron Binding Capacity 160L, Percent Iron Saturation 31, Unsaturated Iron Binding 110L, Total Bilirubin 9.3H, Direct Bilirubin 5.7H, Aspartate Amino Transf (AST/SGOT) 50H, Alanine Aminotransferase (ALT/SGPT) 14, Alkaline Phosphatase 112, Total Protein 5.3L, Albumin 1.7L, Globulin 3.6, Albumin/ Globulin Ratio 0.4L Height (Feet): 5 Height (Inches): 9.00 Weight (Pounds): 211 Cardiovascular: normal rate Respiratory/Chest: lungs clear Edema: 2+ Generalized ALICIA DASH Oct 11, 2016 12:56
[2016-10-12 03:48] VITALS: BP 130/81
[2016-10-12] MEDS ORDERED: Zolpidem 5mg tab ORAL PRN (07:15)
[2016-10-12 07:24] LABS: MEAN CORPUSCULAR HEMOGLOBIN 29.7 PG (27.0-31.0); MEAN CORPUSCULAR HGB CONC 32.2 G/DL (32.0-36.0); MEAN CORPUSCULAR VOLUME 92 FL (80-99); MEAN PLATELET VOLUME 6.9 FL (6.5-10.1); PLATELET COUNT 97 K/UL (150-450); RED BLOOD COUNT 2.71 M/UL (4.70-6.10); RED CELL DISTRIBUTION WIDTH 16.8 % (11.6-14.8); WHITE BLOOD COUNT 5.8 K/UL (4.8-10.8)
[2016-10-12 08:07] VITALS: BP 133/77
[2016-10-12 08:11] LABS: ALBUMIN/GLOBULIN RATIO 0.5 (1.0-2.7); CALCIUM 7.8 mg/dL (8.6-10.2); CREATININE 1.5 mg/dL (0.7-1.2); GLOMERULAR FILTRATION RATE 48.4 mL/min (>60); POTASSIUM 3.5 mEQ/L (3.4-4.9); TOTAL PROTEIN 5.5 g/dL (6.6-8.7)
[2016-10-12 08:32] LABS: BILIRUBIN,DIRECT 5.6 mg/dL (0.1-0.3)
[2016-10-12 10:19] LABS: BAND NEUTROPHILS % (MANUAL) 0 % (0-8); BASOPHILS % (MANUAL) 1 % (0-2); EOSINOPHILS % (MANUAL) 7 % (0-3); LYMPHOCYTES % (MANUAL) 20 % (20-45); NEUTROPHILS % (MANUAL) 66 % (45-75); PLATELET ESTIMATE DECREASED; TOTAL CELLS COUNTED 100
[2016-10-12 10:20] LABS: ANISOCYTOSIS 1+; PLATELET MORPHOLOGY NORMAL
[2016-10-12 10:21] LABS: HYPOCHROMASIA 1+
[2016-10-12 11:56] VITALS: BP 141/82
--- NOTE | 2016-10-12 13:48 | Wound Care Consultation ---
Wound Assessment Wound Assessment #1: Wound Number: #1 Wound Present on Admission: Yes New Wound: No Status Change of Wound: No Wound Location Body Site Modif: left, upper Wound Location Body Site: arm Wound Type: other - scar tissue with scattered discoloration. Elena Test: Does not Elena Wound Length: 3.0 Wound Width: 5.0 Wound Depth: utd Percent of Wound [place]/Red: 100 Wound Drainage Amount: None Wound Drainage Odor: None/Absent Tissue Surrounding Wound: Intact Wound General Appearance: Open to air, Clean/Dry Wound Assessment #2: Wound Number: #2 Wound Present on Admission: Yes New Wound: No Status Change of Wound: No Wound Location Body Site Modif: left Wound Location Body Site: knee Wound Type: other - open wound Elena Test: Does not Elena Wound Thickness: Partial Thickness Wound Length: 2.0 Wound Width: 2.0 Wound Depth: <0.1 Percent of Wound [place]/Red: 100 Wound Drainage Description: Serosanguineous Wound Drainage Amount: Scant Wound Drainage Odor: None/Absent Tissue Surrounding Wound: Erythemic Wound General Appearance: Reddened Wound Assessment #3: Wound Number: #1 Wound Present on Admission: Yes New Wound: No Wound Location Body Site Modif: right Wound Location Body Site: other - 1st plantar foot. Wound Type: scab - dry Elena Test: Does not Elena Wound Length: 0.3 Wound Width: 0.3 Wound Depth: utd Percent of Wound Black/Brown: 100 Wound Drainage Amount: None Wound Drainage Odor: None/Absent Tissue Surrounding Wound: Intact Wound General Appearance: Blackened, Open to air, Clean/Dry Wound Assessment #4: Wound Number: #4 Wound Present on Admission: Yes New Wound: No Status Change of Wound: No Wound Location Body Site Modif: right Wound Location Body Site: knee Wound Type: other - scattered open wounds-etiology unknown. Elena Test: Does not Elena Wound Thickness: Partial Thickness Percent of Wound [place]/Red: 100 Wound Drainage Description: Serosanguineous Wound Drainage Amount: Scant Wound Drainage Odor: None/Absent Tissue Surrounding Wound: Intact Wound General Appearance: Reddened Wound Comment #1 left upper arm scar full thickness scar tissue. #2 left knee open wound etiology unknown. #3 right 1st plantar foot scab. #4 right knee scattered open wound etiology unknown. #5 left lower leg scattered discoloration. #6 left upper arm scattered discoloration. Recommendation. -Local wound care as ordered. - keep scab to plantar foot clean and dry. -Keep clean and dry. -Avoid shear and friction. -Turn and reposition. -Optimize nutrition. -Assess and notify MD for any change of condition to skin noted. ADILSON JEFFRIES Oct 12, 2016 13:48
--- NOTE | 2016-10-12 14:25 | Consultation ---
Consult Note Assessment/Plan Dc dictated # [id number] ALICIA DASH Oct 12, 2016 14:25
[2016-10-12] MEDS ORDERED: Tubing IV Secondary IV ONE (15:19)
[2016-10-12] MEDS ORDERED: NS 275ml ONE ×2 (15:19)
[2016-10-12] MEDS ORDERED: Tubing Blood Filter IV ONE (15:19)
--- NOTE | 2016-10-13 04:00 | Discharge Summary ---
DATE OF ADMISSION: 10/10/2016 DATE OF DISCHARGE: 10/12/2016 CHIEF COMPLAINT: Increasing abdominal distention and leg edema. HISTORY OF PRESENT ILLNESS: This is a 56-year-old male with history of alcohol abuse and alcoholic liver disease, who was admitted with increased leg swelling as well as abdominal girth. HOSPITAL COURSE: The patient had paracentesis done by Radiology after which he felt better. He was anemic. He was transfused one unit of packed red blood cells. His hematocrit was 23.2 as of 07/15/2016 with hemoglobin of 7.3 as of 10/12/2016, hematocrit improved to 25 with hemoglobin of 8. The patient had also renal failure with some improvement. His initial serum creatinine was 1.7, at the time of discharge is 1.5. He had elevated liver enzymes. His total bilirubin is 13.5. At the time of discharge it had improved to 9.6 with elevated AST to 56 and ALT of 15 which did not change much. DISCHARGE DIAGNOSES: Includes: 1. Abdominal girth as a result of ascites. The patient underwent paracentesis. 2. Anemia requiring transfusion. 3. Liver disease and liver cirrhosis. DISCHARGE MEDICATIONS: Please refer to discharge medication list. Candido Oneill M.D. DR: JASBIR JOB#: [id number] CC: REGULO
== END 2016-10-12 15:20 | disposition home or self-care (01) | DRG 280 ==
LOC: EMR 01:00 → 2W 01:53 → EDBEDREQ 02:30 → 2W 05:21 → 4W 10-11 10:29
PROC: 30233N1 Transfusion of Nonautologous Red Blood Cells into Peripheral Vein, Percutaneous Approach (ICD-10-PCS; principal; 2016-10-11)
DX: K70.31 Alcoholic cirrhosis of liver with ascites (principal); D68.9 Coagulation defect, unspecified; N17.9 Acute kidney failure, unspecified; D64.9 Anemia, unspecified
CPT/HCPCS: 36415; 71010; 74000; 76942; 80053; 81003; 82140; 82248; 83540; 83550; 83690; 84484; 85007; 85025; 85610; 85730; 86850; 86900; 86901; 86920; 87070; 87081; 87086; 87205; 89051; 93005

== ENCOUNTER 2016-10-24 11:42 | Inpatient (IN) | payer MEDICAID ==
[~2016-10-24] VITALS: Ht 180.3 cm; Wt 81.6 kg
[~2016-10-24 11:42] MED LIST changes: +NKM
[2016-10-24 12:00] VITALS: BP 141/74
[2016-10-24 12:54] LABS: MEAN CORPUSCULAR HEMOGLOBIN 30.7 PG (27.0-31.0); MEAN CORPUSCULAR HGB CONC 32.4 G/DL (32.0-36.0); MEAN CORPUSCULAR VOLUME 95 FL (80-99); MEAN PLATELET VOLUME 8.2 FL (6.5-10.1); PLATELET COUNT 91 K/UL (150-450); RED BLOOD COUNT 2.75 M/UL (4.70-6.10); RED CELL DISTRIBUTION WIDTH 17.3 % (11.6-14.8); WHITE BLOOD COUNT 5.9 K/UL (4.8-10.8)
[2016-10-24 12:59] LABS: INR 1.3 (0.9-1.1); PROTHROMBIN TIME 13.4 SEC (9.30-11.50)
[2016-10-24 13:06] LABS: ALANINE AMINOTRANSFERASE 16 U/L (3-41); ALBUMIN/GLOBULIN RATIO 0.4 (1.0-2.7); ANION GAP 11 (5-15); ASPARTATE AMINO TRANSFERASE 39 U/L (5-40); CALCIUM 7.7 mg/dL (8.6-10.2); CARBON DIOXIDE 21 mEQ/L (20-30); CHLORIDE 100 mEQ/L (98-107); GLOMERULAR FILTRATION RATE > 60 mL/min (>60); HEMOLYSIS 14; LIPASE 25 U/L (< 60); POTASSIUM 3.7 mEQ/L (3.4-4.9); SODIUM 132 mEQ/L (135-145); TOTAL PROTEIN 6.4 g/dL (6.6-8.7)
[2016-10-24 13:10] LABS: AMMONIA 33 umol/L (16-60)
[2016-10-24 13:18] LABS: ANISOCYTOSIS 1+; BAND NEUTROPHILS % (MANUAL) 2 % (0-8); BASOPHILS % (MANUAL) 1 % (0-2); EOSINOPHILS % (MANUAL) 6 % (0-3); HYPOCHROMASIA 1+; LYMPHOCYTES % (MANUAL) 7 % (20-45); NEUTROPHILS % (MANUAL) 81 % (45-75); PLATELET ESTIMATE DECREASED; PLATELET MORPHOLOGY NORMAL; TOTAL CELLS COUNTED 100
[2016-10-24 13:25] LABS: BILIRUBIN,DIRECT 3.8 mg/dL (0.1-0.3)
--- NOTE | 2016-10-24 13:59 | Emergency Room Report ---
History of Present Illness General Chief Complaint: General Complaint Source: Patient, Medical Record Present Illness HPI 56YOM BIBEMS for increased abd girth and abd pain. Known liver cirrhosis. S/p recent paracentesis as well Denies nausea/vomiting, diarrhea, fever/chills, urinary complaints Allergies: Coded Allergies: No Known Allergies (Unverified , 09/24/16) Patient History Past Medical History: other - liver cirrhosis Past Surgical History: none Pertinent Family History: none Social History: Denies: alcohol use, drug use, smoking Immunizations: UTD Reviewed Nursing Documentation: PMH: Agreed, PSxH: Agreed Nursing Documentation-PMH Hx Cardiac Problems: No Hx Cancer: No Hx Gastrointestinal Problems: Yes - LIVER CIRRHOSIS Hx Neurological Problems: No Review of Systems All Other Systems: negative except mentioned in HPI Physical Exam Vital Signs Date Time Temp Pulse Resp B/P Pulse Ox O2 Delivery O2 Flow Rate FiO2 10/24/16 11:51 98.2 93 20 140/86 100 Room Air Sp02 EP Interpretation: reviewed, normal General Appearance: normal inspection, well appearing, no apparent distress, alert, GCS 15, non-toxic Head: normocephalic, atraumatic Eyes: bilateral eye EOMI, bilateral eye PERRL ENT: normal ENT inspection, hearing grossly normal, normal voice Neck: normal inspection, full range of motion, supple, no bony tend Respiratory: normal inspection, lungs clear, normal breath sounds, no respiratory distress, no retraction, no wheezing Cardiovascular #1: regular rate, rhythm, no edema Gastrointestinal: normal inspection, normal bowel sounds, soft, no guarding, no hernia, other - Enlarged abdominal girth. 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 Afebrile. - Abd NOT distended. Afebrile and no leuks so low suspicion for SBP - Platelets 91. INR 1.3 - Patient ordered for paracentesis but might have to wait until improvement in platelet count. Endorsed to Dr Armstrong for med/surg admission EKG Diagnostic Results Rate: normal, other - prolonged QTc Rhythm: NSR ST Segments: no acute changes Rhythm Strip Diag. Results EP Interpretation: yes Rate: 73 Rhythm: NSR, no PVC's, no ectopy Last Vital Signs Date Time Temp Pulse Resp B/P Pulse Ox O2 Delivery O2 Flow Rate FiO2 10/24/16 12:00 98.6 85 16 141/74 100 Room Air Status: improved Disposition: ADMITTED INPATIENT Condition: Serious Referrals: NOT CHOSEN MOHAMUD/,REFERRING (PCP) DI WEBB M.D. Oct 24, 2016 13:59
[2016-10-24 14:00] VITALS: BP 128/86
[2016-10-24] MEDS ORDERED: Nitroglycerin Subl 0.4mg tab (Bottle Of 25) SL PRN (14:00)
[2016-10-24] MEDS ORDERED: Mylanta II UD 30ml ORAL PRN (14:00)
[2016-10-24] MEDS ORDERED: Phytonadione 10 MG in D5W 55 ML IVPB ONE (15:30)
[2016-10-24 16:25] VITALS: BP 144/86
--- NOTE | 2016-10-24 17:03 | Diagnostic Imaging Report ---
Indications: Ascites Procedure: Informed consent obtained. Ultrasound used to localize optimal puncture site. Sterile prepping and draping over the optimum site. Local anesthesia with 1% lidocaine. Under real-time ultrasound guidance, puncture of the peritoneal space performed using paracentesis needle. Digital image was saved and archived. Stylet removed. Catheter placed to vacuum bottle suction. Fluid was aspirated. Patient tolerated procedure well, without immediate complication. Findings: Followup sonography demonstrates complete resolution of peritoneal fluid Impression: Successful ultrasound-guided paracentesis, yielding 7.7 liters of fluid
--- NOTE | 2016-10-24 17:08 | Diagnostic Imaging Report ---
Indication:Abdominal distention. Ascites Technique: Grayscale and duplex Doppler imaging of the abdomen performed. Comparison: None Findings: There is nodularity of the liver with heterogeneous echotexture present. The spleen is 16 cm. There is moderate ascites present. Gallbladder sludge noted. No biliary ductal dilatation demonstrated. CBD is 5.6 mm in diameter. Suggestion of varices in the left upper quadrant of the abdomen noted. The demonstrated part of the pancreas and aorta appear unremarkable. The main portal vein is patent by Doppler examination. There is no hydronephrosis. Impression: Chronic liver disease/cirrhosis with stigmata of portal hypertension including moderate ascites, splenomegaly and varices.
[2016-10-24] MEDS: D5 1/2NS 1,000 ML IV SCH (17:22)
[2016-10-24] MEDS: Morphine Sulfate 2mg/ml Inj IVP PRN (18:42)
--- NOTE | 2016-10-24 18:45 | History and Physical ---
History of Present Illness General Date patient seen: Oct 24, 2016 Reason for Hospitalization: General Complaint Present Illness HPI 56 year old male with hx of end stage liver cirrhosis, ETOH, reurrent ascites, and hospitalization, presented to ER with CC of increased abd girth and abd pain. Denies nausea/vomiting, diarrhea, fever/chills, urinary complaints. Pt was found to be severely anemia and admitted for further work up. Allergies: Coded Allergies: No Known Allergies (Unverified , 09/24/16) Medication History Scheduled No Known Medications* (NKM - No Known Medications*), 0 ., (Reported) [place]-3 Fatty Acids (Fish Oil), 300 MG PO DAILY, (Reported) Patient History Healthcare decision maker Resuscitation status Full Code Advanced Directive on File Past Medical/Surgical History Past Medical/Surgical History: (1) Liver cirrhosis (2) Thrombocytopenia (3) Ascites (4) Alcoholic liver disease Review of Systems All Other Systems: negative except mentioned in HPI Physical Exam General Appearance: cachetic Lines, tubes and drains: peripheral Neck: non-tender, normal alignment Respiratory/Chest: chest wall non-tender, lungs clear Cardiovascular/Chest: normal peripheral pulses, normal rate Abdomen: normal bowel sounds, non tender Genitourinary/Rectal: normal genital exam Extremities: normal range of motion, non-tender Skin Exam: normal pigmentation 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 Lymphatic: anterior cervical Last 24 Hour Vital Signs Date Time Temp Pulse Resp B/P Pulse Ox O2 Delivery O2 Flow Rate FiO2 10/24/16 16:25 96.7 76 18 144/86 100 Room Air 10/24/16 14:56 98.6 73 16 128/86 100 Room Air 10/24/16 14:00 73 16 128/86 100 Room Air 10/24/16 12:00 98.6 85 16 141/74 100 Room Air 10/24/16 11:51 98.2 93 20 140/86 100 Room Air Laboratory Tests Test 10/24/16 12:15 White Blood Count 5.9 K/UL (4.8-10.8) Red Blood Count 2.75 M/UL (4.70-6.10) L Hemoglobin 8.5 G/DL (14.2-18.0) L Hematocrit 26.1 % (42.0-52.0) L Mean Corpuscular Volume 95 FL (80-99) Mean Corpuscular Hemoglobin 30.7 PG (27.0-31.0) Mean Corpuscular Hemoglobin Concent 32.4 G/DL (32.0-36.0) Red Cell Distribution Width 17.3 % (11.6-14.8) H Platelet Count 91 K/UL (150-450) L Mean Platelet Volume 8.2 FL (6.5-10.1) Neutrophils (%) (Auto) % (45.0-75.0) Lymphocytes (%) (Auto) % (20.0-45.0) Monocytes (%) (Auto) % (1.0-10.0) Eosinophils (%) (Auto) % (0.0-3.0) Basophils (%) (Auto) % (0.0-2.0) Differential Total Cells Counted 100 Neutrophils % (Manual) 81 % (45-75) H Lymphocytes % (Manual) 7 % (20-45) L Monocytes % (Manual) 3 % (1-10) Eosinophils % (Manual) 6 % (0-3) H Basophils % (Manual) 1 % (0-2) Band Neutrophils 2 % (0-8) Platelet Estimate Decreased L Platelet Morphology Normal Hypochromasia 1+ Anisocytosis 1+ Prothrombin Time 13.4 SEC (9.30-11.50) H Prothromb Time International Ratio 1.3 (0.9-1.1) H Activated Partial Thromboplast Time 36 SEC (23-33) H Sodium Level 132 mEQ/L (135-145) L Potassium Level 3.7 mEQ/L (3.4-4.9) Chloride Level 100 mEQ/L (98-107) Carbon Dioxide Level 21 mEQ/L (20-30) Anion Gap 11 (5-15) Blood Urea Nitrogen 12 mg/dL (7-23) Creatinine 1.0 mg/dL (0.7-1.2) Estimat Glomerular Filtration Rate > 60 mL/min (>60) Glucose Level 95 mg/dL (74-106) Calcium Level 7.7 mg/dL (8.6-10.2) L Total Bilirubin 6.8 mg/dL (0.0-1.2) H Direct Bilirubin 3.8 mg/dL (0.1-0.3) H Aspartate Amino Transf (AST/SGOT) 39 U/L (5-40) Alanine Aminotransferase (ALT/SGPT) 16 U/L (3-41) Alkaline Phosphatase 135 U/L (40-129) H Ammonia 33 umol/L (16-60) Total Protein 6.4 g/dL (6.6-8.7) L Albumin 2.1 g/dL (3.5-5.2) L Globulin 4.3 g/dL Albumin/Globulin Ratio 0.4 (1.0-2.7) L Lipase 25 U/L (< 60) Height (Feet): 5 Height (Inches): 11.00 Weight (Pounds): 180 Medications Current Medications Medications (Trade) Dose Ordered Sig/Tee Route PRN Reason Start Time Stop Time Status Last Admin Dose Admin Acetaminophen (Tylenol) 650 mg Q4H PRN ORAL T>100.5 10/24/16 14:00 11/23/16 13:59 Al Hydroxide/Mg Hydroxide (Mylanta II) 30 ml Q6H PRN ORAL dyspepsia 10/24/16 14:00 11/23/16 13:59 Dextrose (Dextrose 50%) STAT PRN IV Hypoglycemia 10/24/16 14:00 11/23/16 13:59 Dextrose/Sodium Chloride (D5 0.45% NS) 1,000 ml @ 75 mls/hr [id number] IV 10/24/16 14:30 11/23/16 14:29 10/24/16 17:22 Diphenhydramine HCl (Benadryl) 25 mg Q6H PRN ORAL Itching/Pruritis 10/24/16 14:00 11/23/16 13:59 Morphine Sulfate (Morphine Sulfate) 2 mg Q4H PRN IVP Severe Pain (Pain Scale 7-10) 10/24/16 14:00 10/31/16 13:59 10/24/16 18:42 Nitroglycerin (Ntg) 0.4 mg Q5M X 3 DOSES PRN SL Prn Chest Pain 10/24/16 14:00 11/23/16 13:59 Ondansetron HCl (Zofran) 4 mg Q6H PRN IVP Nausea & Vomiting 10/24/16 14:00 11/23/16 13:59 Polyethylene Glycol (Miralax) 17 gm HSPRN PRN ORAL Constipation 10/24/16 21:00 11/23/16 20:59 Temazepam (Restoril) 15 mg HSPRN PRN ORAL Insomnia 10/24/16 21:00 10/31/16 20:59 Assessment/Plan Problem List: (1) Ascites ICD Codes: R18.8 - Other ascites SNOMED: 831605523 Qualifiers: Qualified Codes: R18.8 - Other ascites (2) Anemia ICD Codes: D64.9 - Anemia, unspecified SNOMED: 235220051 Qualifiers: Qualified Codes: D64.9 - Anemia, unspecified (3) Thrombocytopenia ICD Codes: D69.6 - Thrombocytopenia, unspecified SNOMED: 840880403 (4) Liver cirrhosis ICD Codes: K74.60 - Unspecified cirrhosis of liver SNOMED: 24942260 Qualifiers: Qualified Codes: K74.60 - Unspecified cirrhosis of liver (5) Weakness ICD Codes: R53.1 - Weakness SNOMED: 98940729 (6) Alcoholic liver disease ICD Codes: K70.9 - Alcoholic liver disease, unspecified SNOMED: 07049287 Assessment/Plan paracentesis GI evlaution prb prbc CHAD SANTOS Oct 24, 2016 18:45
[2016-10-24] MEDS ORDERED: Miralax 17gm pkt ORAL PRN (21:00)
[2016-10-24 21:17] LABS: APPEARANCE,URINE CLEAR; KETONES,URINE NEGATIVE (NEGATIVE); LEUKOCYTE ESTERASE ,URINE 1+ (NEGATIVE); NITRITE,URINE NEGATIVE (NEGATIVE); PH,URINE 7 (4.5-8.0); PROTEIN,URINE NEGATIVE (NEGATIVE); UROBILINOGEN,URINE 1 MG/DL (0.0-1.0)
[2016-10-24 21:35] LABS: BACTERIA,URINE FEW /HPF; RBC,URINE 0-2 /HPF (0 - 0); WBC,URINE 0-2 /HPF (0 - 0)
[2016-10-24 21:36] LABS: AMORPHOUS SEDIMENT,UR FEW /LPF
[2016-10-25] MEDS: D5 1/2NS 1,000 ML IV SCH ×2 (03:50→17:53)
[2016-10-25 07:34] LABS: MEAN CORPUSCULAR HEMOGLOBIN 32.1 PG (27.0-31.0); MEAN CORPUSCULAR HGB CONC 34.2 G/DL (32.0-36.0); MEAN CORPUSCULAR VOLUME 94 FL (80-99); MEAN PLATELET VOLUME 6.6 FL (6.5-10.1); PLATELET COUNT 66 K/UL (150-450); RED BLOOD COUNT 2.23 M/UL (4.70-6.10); WHITE BLOOD COUNT 4.4 K/UL (4.8-10.8)
[2016-10-25 07:48] LABS: ALANINE AMINOTRANSFERASE 12 U/L (3-41); ALBUMIN/GLOBULIN RATIO 0.4 (1.0-2.7); ANION GAP 8 (5-15); ASPARTATE AMINO TRANSFERASE 30 U/L (5-40); CALCIUM 7.4 mg/dL (8.6-10.2); CARBON DIOXIDE 24 mEQ/L (20-30); CHLORIDE 105 mEQ/L (98-107); CREATININE 0.9 mg/dL (0.7-1.2); GLOMERULAR FILTRATION RATE > 60 mL/min (>60); HEMOLYSIS 0; POTASSIUM 3.6 mEQ/L (3.4-4.9); SODIUM 137 mEQ/L (135-145); TOTAL PROTEIN 4.9 g/dL (6.6-8.7)
[2016-10-25 08:23] LABS: EOSINOPHILS % (MANUAL) 8 % (0-3); LYMPHOCYTES % (MANUAL) 15 % (20-45); NEUTROPHILS % (MANUAL) 73 % (45-75); TOTAL CELLS COUNTED 100
[2016-10-25 08:24] LABS: ANISOCYTOSIS 1+; BAND NEUTROPHILS % (MANUAL) 0 % (0-8); BASOPHILS % (MANUAL) 0 % (0-2); HYPOCHROMASIA 3+; PLATELET ESTIMATE DECREASED; PLATELET MORPHOLOGY NORMAL; SPHEROCYTES 2+
[2016-10-25 08:41] VITALS: BP 122/74
[2016-10-25 11:01] VITALS: BP 124/73
--- NOTE | 2016-10-25 15:40 | GI Initial Consult Note ---
History of Present Illness General Date patient seen: Oct 25, 2016 Time patient seen: 15:32 Reason for Hospitalization: General Complaint Referring physician: HCAD SANTOS Reason for Consultation: CIRRHOSIS Present Illness HPI 56YOM BIBEMS for increased abd girth and abd pain. Known liver cirrhosis. S/p recent paracentesis as well Denies nausea/vomiting, diarrhea, fever/chills, urinary complaints GI Consult. HPI as noted above. GI consulted for known liver cirrhosis. Pt seen floor, awake A&Ox4 NAD with no active s/sx of N/V/D. Pt is s/p paracentesis with 7.7L yield. Abdominal U/S reveals Chronic liver disease/ cirrhosis with stigmata of portal hypertension including moderate ascites, splenomegaly and varices. Pt states he has not had an upper endoscopy before. No other GI complaints at this time. Home Meds Reported Medications No Known Medications* (NKM - No Known Medications*) ., 0 ., 0 Refills 10/10/16 [place]-3 Fatty Acids (FISH OIL) 300 Mg Capsule, 300 MG PO DAILY for vitamin, CAP 09/24/16 Allergies: Coded Allergies: No Known Allergies (Unverified , 09/24/16) Patient History History Provided By: Patient, Medical Record PMH Narrative Past Medical History: other - liver cirrhosis Past Surgical History: none Pertinent Family History: none Social History: Denies: alcohol use, drug use, smoking Immunizations: UTD Reviewed Nursing Documentation: PMH: Agreed, PSxH: Agreed Nursing Documentation-PMH Hx Cardiac Problems: No Hx Cancer: No Hx Gastrointestinal Problems: Yes - LIVER CIRRHOSIS Hx Neurological Problems: No Social History: Reports: alcohol use - last drink x 6 months Review of Systems All Other Systems: negative except mentioned in HPI Physical Exam Vital Signs Date Time Temp Pulse Resp B/P Pulse Ox O2 Delivery O2 Flow Rate FiO2 10/24/16 11:51 98.2 93 20 140/86 100 Room Air Sp02 EP Interpretation: reviewed Labs Laboratory Tests Test 10/24/16 19:30 10/25/16 05:15 Urine Color Yellow Urine Appearance Clear Urine pH 7 (4.5-8.0) Urine Specific [place] 1.010 (1.005-1.035) Urine Protein Negative (NEGATIVE) Urine Glucose (UA) Negative (NEGATIVE) Urine Ketones Negative (NEGATIVE) Urine Occult Blood Negative (NEGATIVE) Urine Nitrite Negative (NEGATIVE) Urine Bilirubin Negative (NEGATIVE) Urine Urobilinogen 1 MG/DL (0.0-1.0) H Urine Leukocyte Esterase 1+ (NEGATIVE) H Urine RBC 0-2 /HPF (0 - 0) H Urine WBC 0-2 /HPF (0 - 0) Urine Squamous Epithelial Cells None /LPF (NONE/OCC) Urine Amorphous Sediment Few /LPF (NONE) H Urine Bacteria Few /HPF (NONE) White Blood Count 4.4 K/UL (4.8-10.8) L Red Blood Count 2.23 M/UL (4.70-6.10) L Hemoglobin 7.2 G/DL (14.2-18.0) L Hematocrit 20.9 % (42.0-52.0) L Mean Corpuscular Volume 94 FL (80-99) Mean Corpuscular Hemoglobin 32.1 PG (27.0-31.0) H Mean Corpuscular Hemoglobin Concent 34.2 G/DL (32.0-36.0) Red Cell Distribution Width 17.0 % (11.6-14.8) H Platelet Count 66 K/UL (150-450) L Mean Platelet Volume 6.6 FL (6.5-10.1) Neutrophils (%) (Auto) % (45.0-75.0) Lymphocytes (%) (Auto) % (20.0-45.0) Monocytes (%) (Auto) % (1.0-10.0) Eosinophils (%) (Auto) % (0.0-3.0) Basophils (%) (Auto) % (0.0-2.0) Differential Total Cells Counted 100 Neutrophils % (Manual) 73 % (45-75) Lymphocytes % (Manual) 15 % (20-45) L Monocytes % (Manual) 4 % (1-10) Eosinophils % (Manual) 8 % (0-3) H Basophils % (Manual) 0 % (0-2) Band Neutrophils 0 % (0-8) Platelet Estimate Decreased L Platelet Morphology Normal Hypochromasia 3+ Anisocytosis 1+ Spherocytes 2+ Activated Partial Thromboplast Time 43 SEC (23-33) H Sodium Level 137 mEQ/L (135-145) Potassium Level 3.6 mEQ/L (3.4-4.9) Chloride Level 105 mEQ/L (98-107) Carbon Dioxide Level 24 mEQ/L (20-30) Anion Gap 8 (5-15) Blood Urea Nitrogen 10 mg/dL (7-23) Creatinine 0.9 mg/dL (0.7-1.2) Estimat Glomerular Filtration Rate > 60 mL/min (>60) Glucose Level 85 mg/dL (74-106) Calcium Level 7.4 mg/dL (8.6-10.2) L Total Bilirubin 5.7 mg/dL (0.0-1.2) H Direct Bilirubin 3.0 mg/dL (0.1-0.3) H Aspartate Amino Transf (AST/SGOT) 30 U/L (5-40) Alanine Aminotransferase (ALT/SGPT) 12 U/L (3-41) Alkaline Phosphatase 94 U/L (40-129) Total Protein 4.9 g/dL (6.6-8.7) L Albumin 1.6 g/dL (3.5-5.2) L Globulin 3.3 g/dL Albumin/Globulin Ratio 0.4 (1.0-2.7) L General Appearance: well appearing, no apparent distress Head: normocephalic EENT: normal ENT inspection Neck: supple Respiratory: normal breath sounds, no respiratory distress Cardiovascular: normal rate Gastrointestinal: soft, distended, ascites Rectal: deferred Genitourinary: no CVA tenderness Neurologic: alert, oriented x3, responsive Psychiatric: normal inspection, judgement/insight normal, memory normal Skin: normal inspection, normal color, no rash, warm/dry Lymphatic: normal inspection, no adenopathy Current Medications Current Medications Medications (Trade) Dose Ordered Sig/Tee Route PRN Reason Start Time Stop Time Status Last Admin Dose Admin Acetaminophen (Tylenol) 650 mg Q4H PRN ORAL T>100.5 10/24/16 14:00 11/23/16 13:59 Al Hydroxide/Mg Hydroxide (Mylanta II) 30 ml Q6H PRN ORAL dyspepsia 10/24/16 14:00 11/23/16 13:59 Dextrose (Dextrose 50%) STAT PRN IV Hypoglycemia 10/24/16 14:00 11/23/16 13:59 Dextrose/Sodium Chloride (D5 0.45% NS) 1,000 ml @ 75 mls/hr [id number] IV 10/24/16 14:30 11/23/16 14:29 10/25/16 03:50 Diphenhydramine HCl (Benadryl) 25 mg Q6H PRN ORAL Itching/Pruritis 10/24/16 14:00 11/23/16 13:59 Morphine Sulfate (Morphine Sulfate) 2 mg Q4H PRN IVP Severe Pain (Pain Scale 7-10) 10/24/16 14:00 10/31/16 13:59 10/24/16 18:42 Nitroglycerin (Ntg) 0.4 mg Q5M X 3 DOSES PRN SL Prn Chest Pain 10/24/16 14:00 11/23/16 13:59 Ondansetron HCl (Zofran) 4 mg Q6H PRN IVP Nausea & Vomiting 10/24/16 14:00 11/23/16 13:59 Polyethylene Glycol (Miralax) 17 gm HSPRN PRN ORAL Constipation 10/24/16 21:00 11/23/16 20:59 Temazepam (Restoril) 15 mg HSPRN PRN ORAL Insomnia 10/24/16 21:00 10/31/16 20:59 GI: Plan Problems: (1) Ascites (2) Thrombocytopenia (3) Liver cirrhosis (4) Anemia (5) Alcoholic liver disease Plan EGD schedule tomorrow to evaluate esophageal varices given portal HTN - soft cardiac diet, NPO @ MN. - hold all blood thinners prn transfusion ppi fu labs Discussed with Dr. Boyd. Thank you for referring this patient, we will follow. Daphne Franco N.P. Oct 25, 2016 15:40
[2016-10-25 16:17] VITALS: BP 122/78
--- NOTE | 2016-10-25 17:15 | Pulmonology Progress Note ---
Assessment/Plan Problems: (1) Ascites (2) Anemia (3) Thrombocytopenia (4) Liver cirrhosis (5) Weakness (6) Alcoholic liver disease Assessment/Plan s/p paracentesis for EGD in am check h/h prbc prn Subjective ROS Limited/Unobtainable: No Constitutional: Reports: no symptoms HEENT: Repors: no symptoms Respiratory: Reports: no symptoms Allergies: Coded Allergies: No Known Allergies (Unverified , 09/24/16) Objective Last 24 Hour Vital Signs Date Time Temp Pulse Resp B/P Pulse Ox O2 Delivery O2 Flow Rate FiO2 10/25/16 16:17 98.6 85 20 122/78 99 Room Air 10/25/16 11:01 98.2 79 18 124/73 100 Room Air 10/25/16 08:41 98.2 82 19 122/74 99 Room Air 10/24/16 19:35 96.7 Intake and Output 10/24/16 10/25/16 19:00 07:00 Intake Total 185 ml 900 ml Output Total 650 ml Balance 185 ml 250 ml Intake Oral 0 ml IV Total 185 ml 900 ml Output Urine Total 650 ml # Voids 2 General Appearance: no acute distress HEENT: normocephalic Cardiovascular: normal peripheral pulses, normal rate Abdomen: normal bowel sounds, soft, non tender Genitourinary: normal external genitalia Extremities: no cyanosis 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, 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 gait Lymphatic: no neck adenopathy Microbiology Date/Time Source Procedure Growth Status 10/24/16 15:15 Abdominal Fluid Gram Stain - Final Resulted 10/24/16 15:15 Abdominal Fluid Body Fluid Culture Pending Resulted Laboratory Tests 10/24/16 19:30: Urine Color Yellow, Urine Appearance Clear, Urine pH 7, Urine Specific [place] 1.010, Urine Protein Negative, Urine Glucose (UA) Negative, Urine Ketones Negative, Urine Occult Blood Negative, Urine Nitrite Negative, Urine Bilirubin Negative, Urine Urobilinogen 1H, Urine Leukocyte Esterase 1+H, Urine RBC 0-2H, Urine WBC 0-2, Urine Squamous Epithelial Cells None, Urine Amorphous Sediment FewH, Urine Bacteria Few 10/25/16 05:15: White Blood Count 4.4L, Red Blood Count 2.23L, Hemoglobin 7.2L, Hematocrit 20.9L , Mean Corpuscular Volume 94, Mean Corpuscular Hemoglobin 32.1H, Mean Corpuscular Hemoglobin Concent 34.2, Red Cell Distribution Width 17.0H, Platelet Count 66L, Mean Platelet Volume 6.6, Neutrophils (%) (Auto) , Lymphocytes (%) (Auto) , Monocytes (%) (Auto) , Eosinophils (%) (Auto) , Basophils (%) (Auto) , Differential Total Cells Counted 100, Neutrophils % ( Manual) 73, Lymphocytes % (Manual) 15L, Monocytes % (Manual) 4, Eosinophils % ( Manual) 8H, Basophils % (Manual) 0, Band Neutrophils 0, Platelet Estimate DecreasedL, Platelet Morphology Normal, Hypochromasia 3+, Anisocytosis 1+, Spherocytes 2+, Activated Partial Thromboplast Time 43H, Sodium Level 137, Potassium Level 3.6, Chloride Level 105, Carbon Dioxide Level 24, Anion Gap 8, Blood Urea Nitrogen 10, Creatinine 0.9, Estimat Glomerular Filtration Rate > 60 , Glucose Level 85, Calcium Level 7.4L, Total Bilirubin 5.7H, Direct Bilirubin 3.0H, Aspartate Amino Transf (AST/SGOT) 30, Alanine Aminotransferase (ALT/SGPT) 12, Alkaline Phosphatase 94, Total Protein 4.9L, Albumin 1.6L, Globulin 3.3, Albumin/Globulin Ratio 0.4L Current Medications Medications (Trade) Dose Ordered Sig/Tee Route PRN Reason Start Time Stop Time Status Last Admin Dose Admin Acetaminophen (Tylenol) 650 mg Q4H PRN ORAL T>100.5 10/24/16 14:00 11/23/16 13:59 Al Hydroxide/Mg Hydroxide (Mylanta II) 30 ml Q6H PRN ORAL dyspepsia 10/24/16 14:00 11/23/16 13:59 Dextrose (Dextrose 50%) STAT PRN IV Hypoglycemia 10/24/16 14:00 11/23/16 13:59 Dextrose/Sodium Chloride (D5 0.45% NS) 1,000 ml @ 75 mls/hr [id number] IV 10/24/16 14:30 11/23/16 14:29 10/25/16 03:50 Diphenhydramine HCl (Benadryl) 25 mg Q6H PRN ORAL Itching/Pruritis 10/24/16 14:00 11/23/16 13:59 Morphine Sulfate (Morphine Sulfate) 2 mg Q4H PRN IVP Severe Pain (Pain Scale 7-10) 10/24/16 14:00 10/31/16 13:59 10/24/16 18:42 Nitroglycerin (Ntg) 0.4 mg Q5M X 3 DOSES PRN SL Prn Chest Pain 10/24/16 14:00 11/23/16 13:59 Ondansetron HCl (Zofran) 4 mg Q6H PRN IVP Nausea & Vomiting 10/24/16 14:00 11/23/16 13:59 Polyethylene Glycol (Miralax) 17 gm HSPRN PRN ORAL Constipation 10/24/16 21:00 11/23/16 20:59 Temazepam (Restoril) 15 mg HSPRN PRN ORAL Insomnia 10/24/16 21:00 10/31/16 20:59 CHAD SANTOS Oct 25, 2016 17:15
[2016-10-25 20:10] VITALS: BP 141/74
[2016-10-25 23:54] VITALS: BP 126/86
[2016-10-26] VITALS (9 sets, daily range): BP systolic 114–134; BP diastolic 66–82
[2016-10-26] MEDS: D5 1/2NS 1,000 ML IV SCH (06:30)
--- NOTE | 2016-10-26 06:34 | Anethesia Preoperative Eval ---
Anesthesia Pre-op PMH/ROS General Date of Evaluation: Oct 26, 2016 Time of Evaluation: 06:30 Anesthesiologist: bharat ASA Score: ASA 3 Mallampati Score Class I : Soft palate, uvula, fauces, pillars visible Class II: Soft palate, uvula, fauces visible Class III: Soft palate, base of uvula visible Class IV: Only hard plate visible Mallampati Classification: Class II Surgeon: ozzy Diagnosis: anemia Surgical Procedure: egd Anesthesia History: none Social History: smoking - nonsmoker Family History: no anesthesia problems Allergies: Coded Allergies: No Known Allergies (Unverified , 09/24/16) Medications: see eMAR Past Medical History Gastrointestinal/Genitourinary: Reports: other - , cirhosis, ascites, etoh liver dz Hematology/Immune: Reports: anemia, other - thrombocytopenia Anesthesia Pre-op Phys. Exam Physician Exam Last Vital Signs Date Time Temp Pulse Resp B/P Pulse Ox O2 Delivery O2 Flow Rate FiO2 10/26/16 04:51 98.1 83 20 127/66 98 Room Air Constitutional: NAD Neurologic: CN 2-12 intact Cardiovascular: RRR Respiratory: CTA Gastrointestinal: other - ascites Airway Exam Mallampati Score: Class II MO: full Neck: supple TMD: 2fb ROM: full Teeth: missing Anesthesia Pre-op A/P Labs Labs Test 10/24/16 12:15 10/24/16 19:30 10/25/16 05:15 White Blood Count 5.9 K/UL (4.8-10.8) 4.4 K/UL (4.8-10.8) Red Blood Count 2.75 M/UL (4.70-6.10) 2.23 M/UL (4.70-6.10) Hemoglobin 8.5 G/DL (14.2-18.0) 7.2 G/DL (14.2-18.0) Hematocrit 26.1 % (42.0-52.0) 20.9 % (42.0-52.0) Mean Corpuscular Volume 95 FL (80-99) 94 FL (80-99) Mean Corpuscular Hemoglobin 30.7 PG (27.0-31.0) 32.1 PG (27.0-31.0) Mean Corpuscular Hemoglobin Concent 32.4 G/DL (32.0-36.0) 34.2 G/DL (32.0-36.0) Red Cell Distribution Width 17.3 % (11.6-14.8) 17.0 % (11.6-14.8) Platelet Count 91 K/UL (150-450) 66 K/UL (150-450) Mean Platelet Volume 8.2 FL (6.5-10.1) 6.6 FL (6.5-10.1) Neutrophils (%) (Auto) % (45.0-75.0) % (45.0-75.0) Lymphocytes (%) (Auto) % (20.0-45.0) % (20.0-45.0) Monocytes (%) (Auto) % (1.0-10.0) % (1.0-10.0) Eosinophils (%) (Auto) % (0.0-3.0) % (0.0-3.0) Basophils (%) (Auto) % (0.0-2.0) % (0.0-2.0) Differential Total Cells Counted 100 100 Neutrophils % (Manual) 81 % (45-75) 73 % (45-75) Lymphocytes % (Manual) 7 % (20-45) 15 % (20-45) Monocytes % (Manual) 3 % (1-10) 4 % (1-10) Eosinophils % (Manual) 6 % (0-3) 8 % (0-3) Basophils % (Manual) 1 % (0-2) 0 % (0-2) Band Neutrophils 2 % (0-8) 0 % (0-8) Platelet Estimate Decreased Decreased Platelet Morphology Normal Normal Hypochromasia 1+ 3+ Anisocytosis 1+ 1+ Prothrombin Time 13.4 SEC (9.30-11.50) Prothromb Time International Ratio 1.3 (0.9-1.1) Activated Partial Thromboplast Time 36 SEC (23-33) 43 SEC (23-33) Sodium Level 132 mEQ/L (135-145) 137 mEQ/L (135-145) Potassium Level 3.7 mEQ/L (3.4-4.9) 3.6 mEQ/L (3.4-4.9) Chloride Level 100 mEQ/L (98-107) 105 mEQ/L (98-107) Carbon Dioxide Level 21 mEQ/L (20-30) 24 mEQ/L (20-30) Anion Gap 11 (5-15) 8 (5-15) Blood Urea Nitrogen 12 mg/dL (7-23) 10 mg/dL (7-23) Creatinine 1.0 mg/dL (0.7-1.2) 0.9 mg/dL (0.7-1.2) Estimat Glomerular Filtration Rate > 60 mL/min (>60) > 60 mL/min (>60) Glucose Level 95 mg/dL (74-106) 85 mg/dL (74-106) Calcium Level 7.7 mg/dL (8.6-10.2) 7.4 mg/dL (8.6-10.2) Total Bilirubin 6.8 mg/dL (0.0-1.2) 5.7 mg/dL (0.0-1.2) Direct Bilirubin 3.8 mg/dL (0.1-0.3) 3.0 mg/dL (0.1-0.3) Aspartate Amino Transf (AST/SGOT) 39 U/L (5-40) 30 U/L (5-40) Alanine Aminotransferase (ALT/SGPT) 16 U/L (3-41) 12 U/L (3-41) Alkaline Phosphatase 135 U/L (40-129) 94 U/L (40-129) Ammonia 33 umol/L (16-60) Total Protein 6.4 g/dL (6.6-8.7) 4.9 g/dL (6.6-8.7) Albumin 2.1 g/dL (3.5-5.2) 1.6 g/dL (3.5-5.2) Globulin 4.3 g/dL 3.3 g/dL Albumin/Globulin Ratio 0.4 (1.0-2.7) 0.4 (1.0-2.7) Lipase 25 U/L (< 60) Urine Color Yellow Urine Appearance Clear Urine pH 7 (4.5-8.0) Urine Specific [place] 1.010 (1.005-1.035) Urine Protein Negative (NEGATIVE) Urine Glucose (UA) Negative (NEGATIVE) Urine Ketones Negative (NEGATIVE) Urine Occult Blood Negative (NEGATIVE) Urine Nitrite Negative (NEGATIVE) Urine Bilirubin Negative (NEGATIVE) Urine Urobilinogen 1 MG/DL (0.0-1.0) Urine Leukocyte Esterase 1+ (NEGATIVE) Urine RBC 0-2 /HPF (0 - 0) Urine WBC 0-2 /HPF (0 - 0) Urine Squamous Epithelial Cells None /LPF (NONE/OCC) Urine Amorphous Sediment Few /LPF (NONE) Urine Bacteria Few /HPF (NONE) Spherocytes 2+ Risk Assessment & Plan Assessment: anemia Plan: egd Status Change Before Surgery: No Pre-Antibiotics Drug: na BRIJESH LALA Oct 26, 2016 06:34
[2016-10-26 07:28] LABS: ANION GAP 7 (5-15); CALCIUM 7.4 mg/dL (8.6-10.2); CARBON DIOXIDE 21 mEQ/L (20-30); CHLORIDE 104 mEQ/L (98-107); CREATININE 0.9 mg/dL (0.7-1.2); GLOMERULAR FILTRATION RATE > 60 mL/min (>60); HEMOLYSIS 0; POTASSIUM 3.5 mEQ/L (3.4-4.9); SODIUM 132 mEQ/L (135-145)
[2016-10-26 07:31] LABS: MEAN CORPUSCULAR HEMOGLOBIN 31.4 PG (27.0-31.0); MEAN CORPUSCULAR HGB CONC 33.9 G/DL (32.0-36.0); MEAN CORPUSCULAR VOLUME 93 FL (80-99); MEAN PLATELET VOLUME 6.9 FL (6.5-10.1); PLATELET COUNT 67 K/UL (150-450); RED BLOOD COUNT 2.55 M/UL (4.70-6.10); RED CELL DISTRIBUTION WIDTH 16.6 % (11.6-14.8); WHITE BLOOD COUNT 4.4 K/UL (4.8-10.8)
--- NOTE | 2016-10-26 07:49 | Diagnostic Imaging Report ---
APPROVED REPORT CPT Code: 75172 Present Symptoms Lower Extremity Edema: Bilateral BILATERAL: Imaging reveals a patent deep venous system bilaterally. There is no evidence of thrombus within the femoral, popliteal or tibial segments. The greater saphenous veins are also within normal limits. Doppler indicates normal spontaneous flow within these segments.
[2016-10-26 08:11] LABS: INR 1.4 (0.9-1.1); PROTHROMBIN TIME 14.5 SEC (9.30-11.50)
--- NOTE | 2016-10-26 08:53 | Pre-Procedure Note/Attestation ---
Pre-Procedure Note/Attestation Complete Prior to Procedure Planned Procedure: not applicable Procedure Narrative: egd Indications for Procedure Pre-Operative Diagnosis: anemia, cirrhosis Attestation I attest that I discussed the nature of the procedure; its benefits; risks and complications; and alternatives (and the risks and benefits of such alternatives ), prior to the procedure, with the patient (or the patient's legal patient service representative). I attest that, if there was a reasonable possibility of needing a blood transfusion, the patient (or the patient's legal patient service representative) was given the [facility] standardized written summary, pursuant to the [place] Blood Safety Act ([place] Health and Safety Code # 1645, as amended). I attest that I re-evaluated the patient just prior to the surgery and that there has been no change in the patient's H&P, except as documented below: JYOTHI ORO Oct 26, 2016 08:53
[2016-10-26] MEDS ORDERED: Lidocaine 1% MPF 10mg/ml 5ml ONE (09:00)
[2016-10-26] MEDS ORDERED: Propofol 10mg/ml 20ml IV ONE (09:00)
[2016-10-26] MEDS ORDERED: NS 550ML IV ONE (09:20)
[2016-10-26 09:26] LABS: ANISOCYTOSIS 1+; BAND NEUTROPHILS % (MANUAL) 0 % (0-8); BASOPHILS % (MANUAL) 0 % (0-2); EOSINOPHILS % (MANUAL) 5 % (0-3); HYPOCHROMASIA 1+; LYMPHOCYTES % (MANUAL) 24 % (20-45); NEUTROPHILS % (MANUAL) 65 % (45-75); PLATELET ESTIMATE DECREASED; PLATELET MORPHOLOGY NORMAL; TOTAL CELLS COUNTED 100
--- NOTE | 2016-10-26 09:30 | Endoscopy Procedure Note ---
Endoscopy Procedure Note Indication for Procedure: anemia Procedures Performed: EGD Operative Findings/Diagnosis: gastritis Specimen: yes Pt Tolerated Procedure Well: Yes Estimated Blood Loss: none Anesthesiologist: anna Anesthesia: MAC Implant(s) used?: No 50 yrs or older w/o bx or poly: Not Applicable 10yrs. F/U not recommended: Not Applicable JYOTHI ORO Oct 26, 2016 09:30
--- NOTE | 2016-10-26 09:43 | Immediate Post-Op Evaluation ---
Immediate Post-Op Evalulation Immediate Post-Op Evalulation Procedure: egd Date of Evaluation: Oct 26, 2016 Time of Evaluation: 09:41 IV Fluids: 0.9ns 50ml Blood Products: none Estimated Blood Loss: negligible Blood Pressure Systolic: 131 Blood Pressure Diastolic: 80 Pulse Rate: 79 Respiratory Rate: 18 O2 Sat by Pulse Oximetry: 100 Temperature (Fahrenheit): 98.2 Pain Score (1-10): 0 Nausea: No Complications none Patient Status: awake, reacts, patent Hydration Status: adequate Drug: BRIJESH Roberts Oct 26, 2016 09:43
[2016-10-26] MEDS ORDERED: Hydromorphone 0.5mg/0.5ml inj IVP PRN (09:45)
[2016-10-26] MEDS ORDERED: DiphenhydrAMINE 50mg/ml Inj IVP PRN (09:45)
[2016-10-26] MEDS ORDERED: Midazolam 2mg/2ml Inj IVP PRN (09:45)
[2016-10-26] MEDS ORDERED: Atropine Inj 1mg/10ml Syr IV PRN (09:45)
[2016-10-26] MEDS: Furosemide 40mg tab ORAL SCH (10:55)
[2016-10-26] MEDS: Spironolactone 50mg tab ORAL SCH (10:56)
--- NOTE | 2016-10-26 11:30 | Procedure Note ---
DATE OF PROCEDURE: 10/26/2016 SURGEON: Otis Boyd M.D. PROCEDURE: Upper endoscopy with biopsy. ANESTHESIOLOGIST: Oksana Rubio M.D. INSTRUMENT: Olympus adult flexible upper endoscope. INDICATION: Cirrhosis and anemia. REASON FOR PROCEDURE: The procedure, risks, benefits, and possible consequences, including hemorrhage, aspiration, perforation and infection, and alternative treatments, were explained to the patient/legal guardian by Dr. Otis Boyd and the patient/legal guardian understood and accepted these risks. DESCRIPTION OF PROCEDURE: After informed consent was obtained and the patient was adequately sedated, Olympus upper endoscope was advanced from mouth into the second portion of the duodenum and retroflexion was performed in the stomach. The patient has diffuse portal hypertensive gastropathy. Random biopsy from antrum was obtained to rule out H. pylori infection. There is no evidence of any gastric or esophageal varices. The patient tolerated the procedure without any complication. SUMMARY OF FINDINGS: 1. Portal hypertensive gastropathy. 2. Gastritis, status post biopsy. 3. No obvious esophageal or gastric varices. RECOMMENDATIONS: 1. Follow up biopsies results and treat accordingly. 2. We will send the stool for OB. If it is positive, the patient might benefit from colonoscopy. We will follow. I want to thank, Dr. Armstrong, for this kind referral. Otis Boyd M.D. DR: TOVA JOB#: [id number] CC: Cely Armstrong M.D.; Fax#: [phone]
--- NOTE | 2016-10-26 15:10 | 48 Hour Post Anesthesia Eval ---
Post Anesthesia Evaluation Procedure: egd Date of Evaluation: Oct 26, 2016 Time of Evaluation: 15:09 Blood Pressure Systolic: 131 0: 77 Pulse Rate: 79 Respiratory Rate: 18 Temperature (Fahrenheit): 98.0 O2 Sat by Pulse Oximetry: 99 Airway: patent Nausea: No Vomiting: No Pain Intensity: 0 Hydration Status: adequate Cardiopulmonary Status: stable Mental Status/LOC: patient returned to baseline Post-Anesthesia Complications: none Follow-up care needed: N/A BRIJESH LALA Oct 26, 2016 15:10
--- NOTE | 2016-10-26 16:21 | Diagnostic Imaging Report ---
Indications: Ascites Technique: Ultrasound used to localize optimal puncture site. Sterile prepping and draping right lower quadrant. Local anesthesia with 1% lidocaine. Under real-time ultrasound guidance, puncture peritoneal space using paracentesis needle. Stylet removed. Catheter placed to vacuum bottle suction. Total 4.7 liters of clear yellow fluid aspirated. Patient tolerated procedure well, without immediate complication. A specimen was sent to the lab Findings: Followup sonography demonstrates complete resolution of peritoneal fluid. Impression: Successful ultrasound-guided paracentesis, yielding 4.7 liters of fluid
--- NOTE | 2016-10-26 16:52 | Cardiology Report ---
APPROVED REPORT EKG Measurement Heart [id number] Normal sinus rhythm Prolonged QT Abnormal ECG
[2016-10-26] MEDS ORDERED: D5 1/2NS 1000ml IV ONE (17:09)
[2016-10-26] MEDS ORDERED: NS 275ml ONE (17:09)
[2016-10-26] MEDS ORDERED: Tubing Blood Filter IV ONE (17:09)
--- NOTE | 2016-10-26 18:34 | Pulmonology Progress Note ---
Assessment/Plan Problems: (1) Ascites (2) Anemia (3) Thrombocytopenia (4) Liver cirrhosis (5) Weakness (6) Alcoholic liver disease Assessment/Plan s/p paracentesis for EGD showed gastritis check h/h prbc prn Subjective ROS Limited/Unobtainable: No Allergies: Coded Allergies: No Known Allergies (Unverified , 09/24/16) Objective Last 24 Hour Vital Signs Date Time Temp Pulse Resp B/P Pulse Ox O2 Delivery O2 Flow Rate FiO2 10/26/16 15:41 97.9 78 20 134/81 100 Room Air 10/26/16 15:10 79 18 99 10/26/16 11:52 98.0 79 20 131/77 99 Room Air 10/26/16 09:54 98.2 77 20 124/82 100 Room Air 10/26/16 09:43 79 18 100 10/26/16 09:42 80 20 126/79 100 Room Air 10/26/16 09:37 77 20 131/80 100 Nasal Cannula 2.0 10/26/16 09:32 98.2 83 20 114/82 100 Nasal Cannula 2.0 10/26/16 07:57 98.4 83 20 134/82 98 Room Air 10/26/16 04:51 98.1 83 20 127/66 98 Room Air 10/25/16 23:54 98.8 90 20 126/86 100 Room Air 10/25/16 20:10 99.1 88 20 141/74 98 Room Air Intake and Output 10/25/16 10/26/16 19:00 07:00 Intake Total 885 ml 900 ml Output Total 850 ml Balance 35 ml 900 ml Intake Oral 360 ml IV Total 525 ml 900 ml Output Urine Total 850 ml # Voids 3 General Appearance: WD/WN HEENT: normocephalic, atraumatic Respiratory/Chest: chest wall non-tender, lungs clear Cardiovascular: normal peripheral pulses, normal rate Abdomen: normal bowel sounds, soft, non tender Genitourinary: normal external genitalia Microbiology Date/Time Source Procedure Growth Status 10/24/16 15:15 Abdominal Fluid Gram Stain - Final Resulted 10/24/16 15:15 Abdominal Fluid Body Fluid Culture - Preliminary NO GROWTH AFTER 24 HOURS Resulted Laboratory Tests 10/26/16 05:35: White Blood Count 4.4L, Red Blood Count 2.55L, Hemoglobin 8.0L, Hematocrit 23.6L , Mean Corpuscular Volume 93, Mean Corpuscular Hemoglobin 31.4H, Mean Corpuscular Hemoglobin Concent 33.9, Red Cell Distribution Width 16.6H, Platelet Count 67L, Mean Platelet Volume 6.9, Neutrophils (%) (Auto) , Lymphocytes (%) (Auto) , Monocytes (%) (Auto) , Eosinophils (%) (Auto) , Basophils (%) (Auto) , Differential Total Cells Counted 100, Neutrophils % ( Manual) 65, Lymphocytes % (Manual) 24, Monocytes % (Manual) 6, Eosinophils % ( Manual) 5H, Basophils % (Manual) 0, Band Neutrophils 0, Platelet Estimate DecreasedL, Platelet Morphology Normal, Hypochromasia 1+, Anisocytosis 1+, Prothrombin Time 14.5H, Prothromb Time International Ratio 1.4H, Activated Partial Thromboplast Time 42H, Sodium Level 132L, Potassium Level 3.5, Chloride Level 104, Carbon Dioxide Level 21, Anion Gap 7, Blood Urea Nitrogen 10, Creatinine 0.9, Estimat Glomerular Filtration Rate > 60, Glucose Level 89, Calcium Level 7.4L Current Medications Medications (Trade) Dose Ordered Sig/Tee Route PRN Reason Start Time Stop Time Status Last Admin Dose Admin Al Hydroxide/Mg Hydroxide (Mylanta II) 30 ml Q6H PRN ORAL dyspepsia 10/24/16 14:00 11/23/16 13:59 Dextrose (Dextrose 50%) STAT PRN IV Hypoglycemia 10/24/16 14:00 11/23/16 13:59 Diphenhydramine HCl (Benadryl) 25 mg Q6H PRN ORAL Itching/Pruritis 10/24/16 14:00 11/23/16 13:59 Furosemide (Lasix) 40 mg DAILY ORAL 10/26/16 10:00 11/25/16 09:59 10/26/16 10:55 Morphine Sulfate (Morphine Sulfate) 2 mg Q4H PRN IVP Severe Pain (Pain Scale 7-10) 10/24/16 14:00 10/31/16 13:59 10/24/16 18:42 Nitroglycerin (Ntg) 0.4 mg Q5M X 3 DOSES PRN SL Prn Chest Pain 10/24/16 14:00 11/23/16 13:59 Ondansetron HCl (Zofran) 4 mg Q6H PRN IVP Nausea & Vomiting 10/24/16 14:00 11/23/16 13:59 Polyethylene Glycol (Miralax) 17 gm HSPRN PRN ORAL Constipation 10/24/16 21:00 11/23/16 20:59 Sodium Chloride (Sodium Chloride 1000ml bag) 1,000 ml @ 10 mls/hr Q24H IVLG 10/26/16 15:00 11/25/16 14:59 Spironolactone 100 mg 100 mg DAILY ORAL 10/26/16 10:00 11/25/16 09:59 10/26/16 10:56 Temazepam (Restoril) 15 mg HSPRN PRN ORAL Insomnia 10/24/16 21:00 10/31/16 20:59 CHAD SANTOS Oct 26, 2016 18:34
[2016-10-26 22:35] LABS: APPEARANCE, BODY FLUID HAZY; BD FL VOLUME 24 mL
[2016-10-26 22:36] LABS: BD FL SOURCE PARACENTESIS; BODY FLUID NUCLEATED CELLS 16 /CUMM; BODY FLUID RBC 48 /CUMM; MONONUCLEAR WBC 96 %; POLYMORPHONUCLEAR WBC 2 %
[2016-10-26] MEDS: Morphine Sulfate 2mg/ml Inj IVP PRN (22:52)
[2016-10-27] VITALS (7 sets, daily range): BP systolic 118–141; BP diastolic 69–90
[2016-10-27 07:31] LABS: MEAN CORPUSCULAR HEMOGLOBIN 31.5 PG (27.0-31.0); MEAN CORPUSCULAR VOLUME 92 FL (80-99); MEAN PLATELET VOLUME 7.8 FL (6.5-10.1); PLATELET COUNT 76 K/UL (150-450); RED BLOOD COUNT 2.66 M/UL (4.70-6.10); RED CELL DISTRIBUTION WIDTH 16.7 % (11.6-14.8); WHITE BLOOD COUNT 5.7 K/UL (4.8-10.8)
[2016-10-27 07:33] LABS: ALANINE AMINOTRANSFERASE 15 U/L (3-41); ALBUMIN/GLOBULIN RATIO 0.3 (1.0-2.7); ANION GAP 10 (5-15); ASPARTATE AMINO TRANSFERASE 54 U/L (5-40); CALCIUM 7.5 mg/dL (8.6-10.2); CARBON DIOXIDE 21 mEQ/L (20-30); CHLORIDE 104 mEQ/L (98-107); GLOMERULAR FILTRATION RATE > 60 mL/min (>60); HEMOLYSIS 0; POTASSIUM 4.1 mEQ/L (3.4-4.9); SODIUM 135 mEQ/L (135-145); TOTAL PROTEIN 5.7 g/dL (6.6-8.7)
[2016-10-27 08:11] LABS: BILIRUBIN,DIRECT 2.9 mg/dL (0.1-0.3)
[2016-10-27] MEDS: Furosemide 40mg tab ORAL SCH (09:48)
[2016-10-27] MEDS: Spironolactone 50mg tab ORAL SCH (09:48)
[2016-10-27 10:40] LABS: BASOPHILS % (MANUAL) 1 % (0-2); EOSINOPHILS % (MANUAL) 7 % (0-3); LYMPHOCYTES % (MANUAL) 10 % (20-45); NEUTROPHILS % (MANUAL) 77 % (45-75); TOTAL CELLS COUNTED 100
[2016-10-27 10:41] LABS: ANISOCYTOSIS 1+; BAND NEUTROPHILS % (MANUAL) 0 % (0-8); PLATELET ESTIMATE DECREASED; PLATELET MORPHOLOGY NORMAL
[2016-10-27 10:42] LABS: HYPOCHROMASIA 1+
--- NOTE | 2016-10-27 14:49 | GI Progress Note ---
Assessment/Plan Problems: (1) Weakness ICD Codes: R53.1 - Weakness SNOMED: 88286509 (2) Alcoholic liver disease ICD Codes: K70.9 - Alcoholic liver disease, unspecified SNOMED: 48238948 (3) Ascites ICD Codes: R18.8 - Other ascites SNOMED: 524384106 Qualifiers: Qualified Codes: R18.8 - Other ascites (4) Thrombocytopenia ICD Codes: D69.6 - Thrombocytopenia, unspecified SNOMED: 702281243 (5) Liver cirrhosis ICD Codes: K74.60 - Unspecified cirrhosis of liver SNOMED: 54146675 Qualifiers: Qualified Codes: K74.60 - Unspecified cirrhosis of liver (6) Anemia ICD Codes: D64.9 - Anemia, unspecified SNOMED: 273513721 Qualifiers: Qualified Codes: D64.9 - Anemia, unspecified Status: stable Status Narrative Discussed with Dr. Boyd. Assessment/Plan SUMMARY OF FINDINGS: 1. Portal hypertensive gastropathy. 2. Gastritis, status post biopsy. 3. No obvious esophageal or gastric varices. RECOMMENDATIONS: 1. Follow up biopsies results and treat accordingly. 2. We will send the stool for OB. If it is positive, the patient might benefit from colonoscopy. We will follow. Subjective Gastrointestinal/Abdominal: Reports: no symptoms Objective Last 24 Hour Vital Signs Date Time Temp Pulse Resp B/P Pulse Ox O2 Delivery O2 Flow Rate FiO2 10/27/16 07:49 98.2 99 18 141/72 97 Room Air 10/27/16 04:34 99.3 110 20 119/90 98 Room Air 10/27/16 00:27 98.4 86 20 118/69 98 Room Air 10/26/16 20:52 98.4 79 20 123/67 99 Room Air 10/26/16 15:41 97.9 78 20 134/81 100 Room Air 10/26/16 15:10 79 18 99 Intake and Output 10/26/16 10/27/16 19:00 07:00 Intake Total 650 ml Output Total 1400 ml Balance -750 ml Intake Oral 600 ml IV Total 50 ml Output Urine Total 1400 ml # Voids 5 Laboratory Tests Test 10/27/16 05:40 White Blood Count 5.7 K/UL (4.8-10.8) Red Blood Count 2.66 M/UL (4.70-6.10) L Hemoglobin 8.4 G/DL (14.2-18.0) L Hematocrit 24.6 % (42.0-52.0) L Mean Corpuscular Volume 92 FL (80-99) Mean Corpuscular Hemoglobin 31.5 PG (27.0-31.0) H Mean Corpuscular Hemoglobin Concent 34.0 G/DL (32.0-36.0) Red Cell Distribution Width 16.7 % (11.6-14.8) H Platelet Count 76 K/UL (150-450) L Mean Platelet Volume 7.8 FL (6.5-10.1) Neutrophils (%) (Auto) % (45.0-75.0) Lymphocytes (%) (Auto) % (20.0-45.0) Monocytes (%) (Auto) % (1.0-10.0) Eosinophils (%) (Auto) % (0.0-3.0) Basophils (%) (Auto) % (0.0-2.0) Differential Total Cells Counted 100 Neutrophils % (Manual) 77 % (45-75) H Lymphocytes % (Manual) 10 % (20-45) L Monocytes % (Manual) 5 % (1-10) Eosinophils % (Manual) 7 % (0-3) H Basophils % (Manual) 1 % (0-2) Band Neutrophils 0 % (0-8) Platelet Estimate Decreased L Platelet Morphology Normal Hypochromasia 1+ Anisocytosis 1+ Sodium Level 135 mEQ/L (135-145) Potassium Level 4.1 mEQ/L (3.4-4.9) Chloride Level 104 mEQ/L (98-107) Carbon Dioxide Level 21 mEQ/L (20-30) Anion Gap 10 (5-15) Blood Urea Nitrogen 10 mg/dL (7-23) Creatinine 1.0 mg/dL (0.7-1.2) Estimat Glomerular Filtration Rate > 60 mL/min (>60) Glucose Level 91 mg/dL (74-106) Calcium Level 7.5 mg/dL (8.6-10.2) L Total Bilirubin 5.2 mg/dL (0.0-1.2) H Direct Bilirubin 2.9 mg/dL (0.1-0.3) H Aspartate Amino Transf (AST/SGOT) 54 U/L (5-40) H Alanine Aminotransferase (ALT/SGPT) 15 U/L (3-41) Alkaline Phosphatase 161 U/L (40-129) H Total Protein 5.7 g/dL (6.6-8.7) L Albumin 1.6 g/dL (3.5-5.2) L Globulin 4.1 g/dL Albumin/Globulin Ratio 0.3 (1.0-2.7) L Hepatitis A IgM Antibody Pending Hepatitis B Surface Antigen Pending Hepatitis B Core IgM Antibody Pending Hepatitis C Antibody Pending Height (Feet): 5 Height (Inches): 11.00 Weight (Pounds): 180 General Appearance: no apparent distress, alert Cardiovascular: normal rate Respiratory/Chest: normal breath sounds, no respiratory distress Abdominal Exam: normal bowel sounds, non tender, soft Daphne Franco N.P. Oct 27, 2016 14:49
[2016-10-27] MEDS ORDERED: ALDACTONE50 MG ORAL (19:20)
[2016-10-27] MEDS ORDERED: FUROSEMIDE40 MG ORAL (19:20)
--- NOTE | 2016-10-27 22:45 | Pulmonology Progress Note ---
Assessment/Plan Problems: (1) Ascites (2) Anemia (3) Thrombocytopenia (4) Liver cirrhosis (5) Weakness (6) Alcoholic liver disease Assessment/Plan s/p paracentesis for EGD showed gastritis check h/h prbc prn Subjective Allergies: Coded Allergies: No Known Allergies (Unverified , 09/24/16) Objective Last 24 Hour Vital Signs Date Time Temp Pulse Resp B/P Pulse Ox O2 Delivery O2 Flow Rate FiO2 10/27/16 19:27 97.9 85 20 122/73 99 Room Air 10/27/16 16:00 98.1 85 19 124/74 100 Room Air 10/27/16 12:00 98.0 97 20 139/75 97 Room Air 10/27/16 07:49 98.2 99 18 141/72 97 Room Air 10/27/16 04:34 99.3 110 20 119/90 98 Room Air 10/27/16 00:27 98.4 86 20 118/69 98 Room Air Intake and Output 10/26/16 10/27/16 19:00 07:00 Intake Total 650 ml Output Total 1400 ml Balance -750 ml Intake Oral 600 ml IV Total 50 ml Output Urine Total 1400 ml # Voids 5 Laboratory Tests 10/27/16 05:40: White Blood Count 5.7, Red Blood Count 2.66L, Hemoglobin 8.4L, Hematocrit 24.6L , Mean Corpuscular Volume 92, Mean Corpuscular Hemoglobin 31.5H, Mean Corpuscular Hemoglobin Concent 34.0, Red Cell Distribution Width 16.7H, Platelet Count 76L, Mean Platelet Volume 7.8, Neutrophils (%) (Auto) , Lymphocytes (%) (Auto) , Monocytes (%) (Auto) , Eosinophils (%) (Auto) , Basophils (%) (Auto) , Differential Total Cells Counted 100, Neutrophils % ( Manual) 77H, Lymphocytes % (Manual) 10L, Monocytes % (Manual) 5, Eosinophils % ( Manual) 7H, Basophils % (Manual) 1, Band Neutrophils 0, Platelet Estimate DecreasedL, Platelet Morphology Normal, Hypochromasia 1+, Anisocytosis 1+, Sodium Level 135, Potassium Level 4.1, Chloride Level 104, Carbon Dioxide Level 21, Anion Gap 10, Blood Urea Nitrogen 10, Creatinine 1.0, Estimat Glomerular Filtration Rate > 60, Glucose Level 91, Calcium Level 7.5L, Total Bilirubin 5.2H , Direct Bilirubin 2.9H, Aspartate Amino Transf (AST/SGOT) 54H, Alanine Aminotransferase (ALT/SGPT) 15, Alkaline Phosphatase 161H, Total Protein 5.7L, Albumin 1.6L, Globulin 4.1, Albumin/Globulin Ratio 0.3L, Hepatitis A IgM Antibody [Pending], Hepatitis B Surface Antigen [Pending], Hepatitis B Core IgM Antibody [Pending], Hepatitis C Antibody [Pending] 10/27/16 15:45: Stool Occult Blood [Pending] Current Medications Medications (Trade) Dose Ordered Sig/Tee Route PRN Reason Start Time Stop Time Status Last Admin Dose Admin Al Hydroxide/Mg Hydroxide (Mylanta II) 30 ml Q6H PRN ORAL dyspepsia 10/24/16 14:00 11/23/16 13:59 Dextrose (Dextrose 50%) STAT PRN IV Hypoglycemia 10/24/16 14:00 11/23/16 13:59 Diphenhydramine HCl (Benadryl) 25 mg Q6H PRN ORAL Itching/Pruritis 10/24/16 14:00 11/23/16 13:59 Furosemide (Lasix) 40 mg DAILY ORAL 10/26/16 10:00 11/25/16 09:59 10/27/16 09:48 Morphine Sulfate (Morphine Sulfate) 2 mg Q4H PRN IVP Severe Pain (Pain Scale 7-10) 10/24/16 14:00 10/31/16 13:59 10/26/16 22:52 Nitroglycerin (Ntg) 0.4 mg Q5M X 3 DOSES PRN SL Prn Chest Pain 10/24/16 14:00 11/23/16 13:59 Ondansetron HCl (Zofran) 4 mg Q6H PRN IVP Nausea & Vomiting 10/24/16 14:00 11/23/16 13:59 Polyethylene Glycol (Miralax) 17 gm HSPRN PRN ORAL Constipation 10/24/16 21:00 11/23/16 20:59 Sodium Chloride (Sodium Chloride 1000ml bag) 1,000 ml @ 10 mls/hr Q24H IVLG 10/26/16 15:00 11/25/16 14:59 10/27/16 15:39 Spironolactone 100 mg 100 mg DAILY ORAL 10/26/16 10:00 11/25/16 09:59 10/27/16 09:48 Temazepam (Restoril) 15 mg HSPRN PRN ORAL Insomnia 10/24/16 21:00 10/31/16 20:59 CHAD SANTOS Oct 27, 2016 22:45
[2016-10-28 04:12] VITALS: BP 126/72
[2016-10-28 07:20] LABS: MEAN CORPUSCULAR HEMOGLOBIN 31.5 PG (27.0-31.0); MEAN CORPUSCULAR HGB CONC 34.4 G/DL (32.0-36.0); MEAN CORPUSCULAR VOLUME 92 FL (80-99); MEAN PLATELET VOLUME 10.5 FL (6.5-10.1); PLATELET COUNT 83 K/UL (150-450); RED CELL DISTRIBUTION WIDTH 16.2 % (11.6-14.8); WHITE BLOOD COUNT 4.4 K/UL (4.8-10.8)
[2016-10-28 07:26] LABS: ANION GAP 10 (5-15); CALCIUM 7.3 mg/dL (8.6-10.2); CARBON DIOXIDE 22 mEQ/L (20-30); CHLORIDE 101 mEQ/L (98-107); GLOMERULAR FILTRATION RATE > 60 mL/min (>60); HEMOLYSIS 1; POTASSIUM 3.6 mEQ/L (3.4-4.9); SODIUM 133 mEQ/L (135-145)
[2016-10-28 07:28] LABS: HEMOLYSIS 1; IRON 83 ug/dL (59-158); TOTAL IRON BINDING CAPACITY 152 ug/dL (250-400)
[2016-10-28 07:29] LABS: FERRITIN 135 ng/mL (10-230)
--- NOTE | 2016-10-28 08:01 | Pulmonology Progress Note ---
Assessment/Plan Assessment/Plan ASSESSMENT alcoholic liver disease liver cirrhosis ascites s/p paracentesis 10/24 - 7.7 L s/p paracentesis 10/26-4.7 L anemia of chronic disease s/p blood transfusion thrombocytopenia elevated bili s/p EGD with bx gastritis portal HTN gastropathy PLAN OF CARE MS floor s/p paracentesis 10/24 and 10/26 ascitic fluid cx negative Venous Duplex BLE negative abdominal US + chronic liver disease and stigmata of portal HTN ( ascites, SM, varices) ammonia level stable lipase WNL monitor LFT, bili trending down hepatitis panel pending diuretic, monitor renal parameters, lytes , I/O pain management bowel regimen PT/OT monitor HH, transfuse to keep Hgb above 7 anemia workup with stable iron, B 12, anemia of chronic disease stool OB negative dc today case discussed and evaluated by supervising physician Subjective Allergies: Coded Allergies: No Known Allergies (Unverified , 09/24/16) Subjective afebrile, no leucocytosis denies chest pain, SOB denies abdominal pain, n/v/ feeling better bili trending down s/p 2 paracentesis Objective Last 24 Hour Vital Signs Date Time Temp Pulse Resp B/P Pulse Ox O2 Delivery O2 Flow Rate FiO2 10/28/16 04:12 98.1 83 20 126/72 97 Room Air 10/27/16 23:56 99.3 84 20 130/76 97 Room Air 10/27/16 19:27 97.9 85 20 122/73 99 Room Air 10/27/16 16:00 98.1 85 19 124/74 100 Room Air 10/27/16 12:00 98.0 97 20 139/75 97 Room Air Intake and Output 10/27/16 10/28/16 19:00 07:00 Intake Total 520 ml 110 ml Output Total 750 ml Balance -230 ml 110 ml Intake Oral 480 ml IV Total 40 ml 110 ml Output Urine Total 750 ml General Appearance: no acute distress, other - awake, alert, responsive male , looking older than his chronological age HEENT: normocephalic, atraumatic, anicteric, mucous membranes moist Respiratory/Chest: lungs clear - with moderate air entry , no respiratory distress, no accessory muscle use Cardiovascular: normal peripheral pulses, normal rate, regular rhythm, no JVD Abdomen: normal bowel sounds, soft, non tender - distended Genitourinary: normal external genitalia Extremities: other - trace edema BLE Neurologic/Psychiatric: no motor/sensory deficits, alert, responsive Musculoskeletal: normal muscle bulk Laboratory Tests 10/27/16 15:45: Stool Occult Blood [Pending] 10/28/16 05:00: White Blood Count 4.4L, Red Blood Count 2.60L, Hemoglobin 8.2L, Hematocrit 23.9L , Mean Corpuscular Volume 92, Mean Corpuscular Hemoglobin 31.5H, Mean Corpuscular Hemoglobin Concent 34.4, Red Cell Distribution Width 16.2H, Platelet Count 83L, Mean Platelet Volume 10.5H, Neutrophils (%) (Auto) , Lymphocytes (%) (Auto) , Monocytes (%) (Auto) , Eosinophils (%) (Auto) , Basophils (%) (Auto) , Neutrophils % (Manual) [Pending], Lymphocytes % (Manual) [Pending], Platelet Estimate [Pending], Platelet Morphology [Pending], Sodium Level 133L, Potassium Level 3.6, Chloride Level 101, Carbon Dioxide Level 22, Anion Gap 10, Blood Urea Nitrogen 14, Creatinine 1.0, Estimat Glomerular Filtration Rate > 60, Glucose Level 79, Calcium Level 7.3L, Iron Level 83, Total Iron Binding Capacity 152L, Percent Iron Saturation 55H, Unsaturated Iron Binding 69L, Ferritin 135, Vitamin B12 Level 889, Folate [Pending] Current Medications Medications (Trade) Dose Ordered Sig/Tee Route PRN Reason Start Time Stop Time Status Last Admin Dose Admin Al Hydroxide/Mg Hydroxide (Mylanta II) 30 ml Q6H PRN ORAL dyspepsia 10/24/16 14:00 11/23/16 13:59 Dextrose (Dextrose 50%) STAT PRN IV Hypoglycemia 10/24/16 14:00 11/23/16 13:59 Diphenhydramine HCl (Benadryl) 25 mg Q6H PRN ORAL Itching/Pruritis 10/24/16 14:00 11/23/16 13:59 Furosemide (Lasix) 40 mg DAILY ORAL 10/26/16 10:00 11/25/16 09:59 10/27/16 09:48 Morphine Sulfate (Morphine Sulfate) 2 mg Q4H PRN IVP Severe Pain (Pain Scale 7-10) 10/24/16 14:00 10/31/16 13:59 10/26/16 22:52 Nitroglycerin (Ntg) 0.4 mg Q5M X 3 DOSES PRN SL Prn Chest Pain 10/24/16 14:00 11/23/16 13:59 Ondansetron HCl (Zofran) 4 mg Q6H PRN IVP Nausea & Vomiting 10/24/16 14:00 11/23/16 13:59 Polyethylene Glycol (Miralax) 17 gm HSPRN PRN ORAL Constipation 10/24/16 21:00 11/23/16 20:59 Sodium Chloride (Sodium Chloride 1000ml bag) 1,000 ml @ 10 mls/hr Q24H IVLG 10/26/16 15:00 11/25/16 14:59 10/27/16 15:39 Spironolactone 100 mg 100 mg DAILY ORAL 10/26/16 10:00 11/25/16 09:59 10/27/16 09:48 Temazepam (Restoril) 15 mg HSPRN PRN ORAL Insomnia 10/24/16 21:00 10/31/16 20:59 [facility]merCentral [facility] CenterSusan guerrero NP Oct 28, 2016 08:01
[2016-10-28 08:18] VITALS: BP 115/68
[2016-10-28 08:34] LABS: BAND NEUTROPHILS % (MANUAL) 4 % (0-8); BASOPHILS % (MANUAL) 0 % (0-2); EOSINOPHILS % (MANUAL) 2 % (0-3); LYMPHOCYTES % (MANUAL) 11 % (20-45); NEUTROPHILS % (MANUAL) 79 % (45-75); PLATELET ESTIMATE DECREASED; PLATELET MORPHOLOGY NORMAL; TOTAL CELLS COUNTED 100
[2016-10-28] MEDS: Furosemide 40mg tab ORAL SCH (09:01)
[2016-10-28] MEDS: Spironolactone 50mg tab ORAL SCH (09:01)
--- NOTE | 2016-10-28 12:31 | GI Progress Note ---
Assessment/Plan Problems: (1) Weakness ICD Codes: R53.1 - Weakness SNOMED: 18864917 (2) Alcoholic liver disease ICD Codes: K70.9 - Alcoholic liver disease, unspecified SNOMED: 51658100 (3) Ascites ICD Codes: R18.8 - Other ascites SNOMED: 505036364 Qualifiers: Qualified Codes: R18.8 - Other ascites (4) Thrombocytopenia ICD Codes: D69.6 - Thrombocytopenia, unspecified SNOMED: 674115806 (5) Liver cirrhosis ICD Codes: K74.60 - Unspecified cirrhosis of liver SNOMED: 50825017 Qualifiers: Qualified Codes: K74.60 - Unspecified cirrhosis of liver (6) Anemia ICD Codes: D64.9 - Anemia, unspecified SNOMED: 033297677 Qualifiers: Qualified Codes: D64.9 - Anemia, unspecified Status: stable Status Narrative Discussed with Dr. Boyd. Assessment/Plan SUMMARY OF FINDINGS: 1. Portal hypertensive gastropathy. 2. Gastritis, status post biopsy. 3. No obvious esophageal or gastric varices. RECOMMENDATIONS: 1. Follow up biopsies results and treat accordingly. 2. We will send the stool for OB. If it is positive, the patient might benefit from colonoscopy. We will follow. pt cleared for DC from GI standpoint Subjective Gastrointestinal/Abdominal: Reports: abdomen distended, no symptoms Objective Last 24 Hour Vital Signs Date Time Temp Pulse Resp B/P Pulse Ox O2 Delivery O2 Flow Rate FiO2 10/28/16 08:18 98.2 87 20 115/68 98 Room Air 10/28/16 04:12 98.1 83 20 126/72 97 Room Air 10/27/16 23:56 99.3 84 20 130/76 97 Room Air 10/27/16 19:27 97.9 85 20 122/73 99 Room Air 10/27/16 16:00 98.1 85 19 124/74 100 Room Air Intake and Output 10/27/16 10/28/16 19:00 07:00 Intake Total 520 ml 110 ml Output Total 750 ml Balance -230 ml 110 ml Intake Oral 480 ml IV Total 40 ml 110 ml Output Urine Total 750 ml Laboratory Tests Test 10/27/16 15:45 10/28/16 05:00 Stool Occult Blood Negative (NEGATIVE) White Blood Count 4.4 K/UL (4.8-10.8) L Red Blood Count 2.60 M/UL (4.70-6.10) L Hemoglobin 8.2 G/DL (14.2-18.0) L Hematocrit 23.9 % (42.0-52.0) L Mean Corpuscular Volume 92 FL (80-99) Mean Corpuscular Hemoglobin 31.5 PG (27.0-31.0) H Mean Corpuscular Hemoglobin Concent 34.4 G/DL (32.0-36.0) Red Cell Distribution Width 16.2 % (11.6-14.8) H Platelet Count 83 K/UL (150-450) L Mean Platelet Volume 10.5 FL (6.5-10.1) H Neutrophils (%) (Auto) % (45.0-75.0) Lymphocytes (%) (Auto) % (20.0-45.0) Monocytes (%) (Auto) % (1.0-10.0) Eosinophils (%) (Auto) % (0.0-3.0) Basophils (%) (Auto) % (0.0-2.0) Differential Total Cells Counted 100 Neutrophils % (Manual) 79 % (45-75) H Lymphocytes % (Manual) 11 % (20-45) L Monocytes % (Manual) 4 % (1-10) Eosinophils % (Manual) 2 % (0-3) Basophils % (Manual) 0 % (0-2) Band Neutrophils 4 % (0-8) Platelet Estimate Decreased L Platelet Morphology Normal Red Blood Cell Morphology Normal Sodium Level 133 mEQ/L (135-145) L Potassium Level 3.6 mEQ/L (3.4-4.9) Chloride Level 101 mEQ/L (98-107) Carbon Dioxide Level 22 mEQ/L (20-30) Anion Gap 10 (5-15) Blood Urea Nitrogen 14 mg/dL (7-23) Creatinine 1.0 mg/dL (0.7-1.2) Estimat Glomerular Filtration Rate > 60 mL/min (>60) Glucose Level 79 mg/dL (74-106) Calcium Level 7.3 mg/dL (8.6-10.2) L Iron Level 83 ug/dL (59-158) Total Iron Binding Capacity 152 ug/dL (250-400) L Percent Iron Saturation 55 % (15-50) H Unsaturated Iron Binding 69 ug/dL (112-346) L Ferritin 135 ng/mL (10-230) Vitamin B12 Level 889 pg/mL (211-946) Folate Pending Height (Feet): 5 Height (Inches): 11.00 Weight (Pounds): 180 General Appearance: no apparent distress, alert Cardiovascular: normal rate Respiratory/Chest: normal breath sounds, no respiratory distress Abdominal Exam: normal bowel sounds, non tender, soft, ascites Extremities: normal range of motion Daphne Franco N.P. Oct 28, 2016 12:31
[2016-10-28] MEDS ORDERED: VITAMIN B-1100 MG ORAL (13:51)
--- NOTE | 2016-10-31 08:45 | Discharge Summary ---
Discharge Summary Hospital Course Date of Admission Oct 24, 2016 at 12:12 Date of Discharge Oct 28, 2016 at 11:39 Admitting Diagnosis abdominal pain HPI Byron Perez is a 56 year old male who was admitted on Oct 24, 2016 at 12:12 for Abdominal Pain Hospital Course dc summary #[id number] Discharge Medications New Medications: Thiamine Hcl* (Vitamin B-1*) 100 Mg Tablet 100 MG ORAL DAILY, #30 TAB 0 Refills Furosemide* (Lasix*) 40 Mg Tablet 40 MG ORAL DAILY for 30 Days, TAB Spironolactone (Aldactone) 50 Mg Tablet 100 MG ORAL DAILY for 30 Days, TAB Discontinued Medications: [place]-3 Fatty Acids (Fish Oil) 300 Mg Capsule 300 MG PO DAILY for vitamin, CAP Discharge Condition Upon Discharge: stable Discharge Disposition Patient was discharged to Home (01) Discharge Diagnoses: Tung (Natalya)Susan NP Oct 31, 2016 08:45
--- NOTE | 2016-10-31 22:46 | Discharge Summary 2 SIG ---
DATE OF ADMISSION: 10/24/2016 DATE OF DISCHARGE: 10/28/2016 The patient is admitted under Dr. Armstrong. 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 The patient recently undergone paracentesis. He denied nausea, vomiting, diarrhea, fever, chills, or urinary complaints. The patient was afebrile and normotensive. Pulse oximetry was stable on room air. Platelets 91,000. INR 1.3. A low suspicion for due to being afebrile and no leukocytosis. The patient admitted for further management. ADMITTING DIAGNOSES: Includes: 1. Liver cirrhosis. 2. Ascites. 3. Anemia. 4. Thrombocytopenia. 5. Alcoholic liver disease. HOSPITAL STAY: The patient was admitted. GI consult was requested. The patient undergone paracentesis on 10/24/2016, which yielded 7.7 liters of fluid and repeated one on 10/26/2016, which yielded 4.7 liters of fluid. Ascitic fluid culture was negative. GI closely followed. Abdominal ultrasound revealed chronic liver disease and stigmata of portal hypertension (ascites, splenomegaly, and varices). Ammonia level was stable. Lipase was within normal limits. The patient undergone esophagogastroduodenoscopy with biopsy, found gastritis status post biopsy, biopsy pending, and portal hypertensive gastropathy. LFTs were closely monitored. Bilirubin was trending down. Hepatitis panel negative. Anemia workup was done, revealed stable iron and stable ferritin, likely anemia of chronic disease. Folate level and B12 are stable. However, folate level on the lower border of 3.8. The patient was started on thiamine. Stool for occult blood was negative. The patient required iron transfusion for one unit of packed red blood cells for hemoglobin of 7.2 and hematocrit of 20.9. Prior to discharge, hemoglobin 8.2, hematocrit 23.9, and platelets 83,000. Prior to discharge, gastric biopsy reveals portal hypertensive gastropathy, mild chronic gastritis with no activity. No H. pylori organism identified. No intestinal metaplasia or dysplasia identified. The patient was cleared for discharge. Diuretics were given. Renal parameters and electrolytes were closely monitored. Intake and output was monitored. Pain management was addressed. Bowel regimen was instituted. The patient was working with physical and occupational therapy. The patient was stable for discharge. DISCHARGE DIAGNOSES: Includes: 1. Alcoholic liver disease. 2. Ascites, status post paracentesis on 10/24/2016 and status post paracentesis on 10/26/2016, 4.7 liters and 10/24/2016, 7.7 liters. 3. Anemia of chronic disease. 4. Status post blood transfusion. 5. Thrombocytopenia. 6. Elevated bilirubin. 7. Status post esophagogastroduodenoscopy. 8. Gastritis, status post biopsy. 9. Portal hypertensive gastropathy. DISCHARGE MEDICATIONS: See medication reconciliation list. DISCHARGE INSTRUCTIONS: The patient is discharged home. Follow up with primary medical doctor. Cely Armstrong M.D. I have been assigned to dictate discharge summary on this account and I was not involved in the patient's management. Susan Plummernorth [facility] hospitalMiguelito N.PJuan DR: WARNER JOB#: [id number] CC:
== END 2016-10-28 11:39 | disposition home or self-care (01) | DRG 280 ==
LOC: EMR 12:10 → 4W 12:12 → EDBEDREQ 14:08
PROC: 0W9G3ZZ Drainage of Peritoneal Cavity, Percutaneous Approach (ICD-10-PCS; principal; 2016-10-24)
PROC: 30233N1 Transfusion of Nonautologous Red Blood Cells into Peripheral Vein, Percutaneous Approach (ICD-10-PCS; 2016-10-25)
PROC: 0W9G3ZZ Drainage of Peritoneal Cavity, Percutaneous Approach (ICD-10-PCS; 2016-10-26)
PROC: 0DB68ZX Excision of Stomach, Via Natural or Artificial Opening Endoscopic, Diagnostic (ICD-10-PCS; 2016-10-26)
DX: K70.31 Alcoholic cirrhosis of liver with ascites (principal); K76.6 Portal hypertension; D69.6 Thrombocytopenia, unspecified; K31.89 Other diseases of stomach and duodenum; K29.70 Gastritis, unspecified, without bleeding; D63.8 Anemia in other chronic diseases classified elsewhere
CPT/HCPCS: 36415; 76700; 76942; 80048; 80053; 81003; 82140; 82248; 82270; 82607; 82728; 82746; 83540; 83550; 83690; 85007; 85025; 85610; 85730; 86705; 86709; 86803; 86850; 86900; 86901; 86920; 87070; 87081; 87205; 87340; 89051; 93005; 93970; 94003; 94150

== ENCOUNTER 2018-02-17 14:50 | Emergency (ER) | payer OTHER ==
[~2018-02-17] VITALS: Ht 180.3 cm; Wt 90.7 kg
[~2018-02-17 14:50] MED LIST changes: +ALDACTONE50 MG ORAL; +BANOPHEN25 MG PO; +FUROSEMIDE40 MG ORAL; +LACTULOSE20 GM/301 ORAL; +LORAZEPAM1 MG ORAL; +MORPHINE S10 MG/5 ML ORAL; +NAPROXEN500 M1 ORAL; +POTASSIUM CHLO10 MEQ ORAL; +PROPRANOLOL HCL10 MG ORAL; +SENEXON-S TABL1 EACH ORAL; +THIAMINE HCL100 MG ORAL; +VITAMIN B-1100 MG ORAL; +XIFAXAN550 MG ORAL
[2018-02-17 15:04] VITALS: BP 142/79
--- NOTE | 2018-02-17 15:13 | Emergency Room Report ---
History of Present Illness General Chief Complaint: General Complaint Source: Patient, Medical Record Present Illness HPI Patient is a 57-year-old male brought in by friend after increased confusion. Patient prior history of hepatic encephalopathy. He was reportedly compliant with his medications. Patient not been having any vomiting or diarrhea. The patient was having increased pain to his left upper extremity. Patient was noted to have some baseline unsteady gait. Patient prior history of chronic alcohol abuse. He had previous episodes of encephalopathy Allergies: Coded Allergies: No Known Allergies (Unverified , 02/17/18) Patient History Past Medical History: see triage record Reviewed Nursing Documentation: PMH: Agreed; PSxH: Agreed Nursing Documentation-PMH Past Medical History: No History, Except For Hx Cardiac Problems: No Hx Cancer: No Hx Gastrointestinal Problems: Yes - LIVER CIRRHOSIS Hx Neurological Problems: Yes Hx Weakness: Yes Review of Systems All Other Systems: limited - by poor cooperation Physical Exam Vital Signs Date Time Temp Pulse Resp B/P (MAP) Pulse Ox O2 Delivery O2 Flow Rate FiO2 02/17/18 14:54 98.1 82 16 143/83 93 Room Air Sp02 EP Interpretation: reviewed, normal General Appearance: normal inspection, well appearing, no apparent distress, alert, GCS 15 Head: atraumatic Eyes: bilateral eye other - perrl ENT: normal ENT inspection, hearing grossly normal, normal voice Neck: normal inspection, full range of motion, supple, no bony tend Respiratory: normal inspection, lungs clear, normal breath sounds, no respiratory distress, no retraction, no wheezing Cardiovascular #1: regular rate, rhythm, no edema Gastrointestinal: normal inspection, normal bowel sounds, non tender, soft, no guarding, no hernia Genitourinary: no CVA tenderness Musculoskeletal: normal inspection, back normal, normal range of motion Neurologic: normal inspection, alert, responsive, flat ironer III-XII nml as tested, speech normal, other - no asterixis, no drift Psychiatric: normal inspection, judgement/insight normal, mood/affect normal Skin: normal inspection, normal color, no rash, other - left upper extremity forearm bruise Medical Decision Making Diagnostic Impression: Primary Impression: Alcoholic liver disease ER Course The patient presented for altered mental status.Differential diagnosis included but was not limited to ischemic stroke, subarachnoid hemorrhage, hypoglycemia, spinal cord injury, neurodegenerative disorder, urinary tract infection, hypoxemia.Because of complexity of patient's case laboratory testing and imaging studies were ordered. The patient's laboratory testing was essentially unremarkable. Patient given IV thiamine. The patient's ammonia level was approximate 40. Patient showed no evidence of hippus or asterixis. Patient tolerated lactulose well. The patient be discharged home. Advised follow-up with his primary care physician.Per the patient's friend he is able to care for himself and normally maintains own self care. Labs Test 02/17/18 15:20 02/17/18 16:15 White Blood Count 6.2 K/UL (4.8-10.8) Red Blood Count 4.39 M/UL (4.70-6.10) Hemoglobin 12.5 G/DL (14.2-18.0) Hematocrit 35.1 % (42.0-52.0) Mean Corpuscular Volume 80 FL (80-99) Mean Corpuscular Hemoglobin 28.5 PG (27.0-31.0) Mean Corpuscular Hemoglobin Concent 35.7 G/DL (32.0-36.0) Red Cell Distribution Width 12.3 % (11.6-14.8) Platelet Count 124 K/UL (150-450) Mean Platelet Volume 7.4 FL (6.5-10.1) Neutrophils (%) (Auto) 72.8 % (45.0-75.0) Lymphocytes (%) (Auto) 14.6 % (20.0-45.0) Monocytes (%) (Auto) 8.0 % (1.0-10.0) Eosinophils (%) (Auto) 3.3 % (0.0-3.0) Basophils (%) (Auto) 1.4 % (0.0-2.0) Prothrombin Time 11.8 SEC (9.30-11.50) Prothromb Time International Ratio 1.1 (0.9-1.1) Activated Partial Thromboplast Time 33 SEC (23-33) Sodium Level 137 MMOL/L (136-145) Potassium Level 3.5 MMOL/L (3.5-5.1) Chloride Level 104 MMOL/L (98-107) Carbon Dioxide Level 22 MMOL/L (21-32) Anion Gap 11 mmol/L (5-15) Blood Urea Nitrogen 11 mg/dL (7-18) Creatinine 1.0 MG/DL (0.55-1.30) Estimat Glomerular Filtration Rate > 60 mL/min (>60) Glucose Level 119 MG/DL (74-106) Calcium Level 8.8 MG/DL (8.5-10.1) Total Bilirubin 0.7 MG/DL (0.2-1.0) Aspartate Amino Transf (AST/SGOT) 24 U/L (15-37) Alanine Aminotransferase (ALT/SGPT) 31 U/L (12-78) Alkaline Phosphatase 174 U/L (46-116) Ammonia 47 umol/L (11-32) Total Creatine Kinase 171 U/L (26-308) Total Protein 8.1 G/DL (6.4-8.2) Albumin 3.2 G/DL (3.4-5.0) Globulin 4.9 g/dL Albumin/Globulin Ratio 0.7 (1.0-2.7) Lipase 178 U/L (73-393) Serum Alcohol < 3 mg/dL Urine Opiates Screen Negative (NEGATIVE) Urine Barbiturates Screen Negative (NEGATIVE) Phencyclidine (PCP) Screen Negative (NEGATIVE) Urine Amphetamines Screen Negative (NEGATIVE) Urine Benzodiazepines Screen Negative (NEGATIVE) Urine Cocaine Screen Negative (NEGATIVE) Urine Marijuana (THC) Screen Negative (NEGATIVE) Last Vital Signs Date Time Temp Pulse Resp B/P (MAP) Pulse Ox O2 Delivery O2 Flow Rate FiO2 02/17/18 14:54 98.1 82 16 143/83 93 Room Air Status: improved Disposition: HOME, SELF-CARE Condition: Stable Ken Shaffer MD Feb 17, 2018 15:13
[2018-02-17] MEDS ORDERED: Lactulose 20gm/30ml UDC ORAL ONE (15:15)
[2018-02-17] MEDS ORDERED: Thiamine HCl 100 MG in D5W 55 ML IVPB ONE (15:15)
[2018-02-17 15:53] LABS: AMMONIA 47 umol/L (11-32); INR 1.1 (0.9-1.1)
[2018-02-17 15:55] LABS: BASOPHILS % (AUTO) 1.4 % (0.0-2.0); EOSINOPHILS % (AUTO) 3.3 % (0.0-3.0); HEMATOCRIT 35.1 % (42.0-52.0); HEMOGLOBIN 12.5 G/DL (14.2-18.0); LYMPHOCYTES % (AUTO) 14.6 % (20.0-45.0); MEAN CORPUSCULAR VOLUME 80 FL (80-99); NEUTROPHILS % (AUTO) 72.8 % (45.0-75.0); PLATELET COUNT 124 K/UL (150-450); RED BLOOD COUNT 4.39 M/UL (4.70-6.10); RED CELL DISTRIBUTION WIDTH 12.3 % (11.6-14.8); WHITE BLOOD COUNT 6.2 K/UL (4.8-10.8)
[2018-02-17 15:56] LABS: CREATINE KINASE 171 U/L (26-308)
[2018-02-17 16:07] LABS: ANION GAP 11 mmol/L (5-15); BLOOD UREA NITROGEN 11 mg/dL (7-18); CALCIUM 8.8 MG/DL (8.5-10.1); CARBON DIOXIDE 22 MMOL/L (21-32); CHLORIDE 104 MMOL/L (98-107); POTASSIUM 3.5 MMOL/L (3.5-5.1); SODIUM 137 MMOL/L (136-145)
[2018-02-17 16:12] LABS: ALANINE AMINOTRANSFERASE 31 U/L (12-78); ALBUMIN 3.2 G/DL (3.4-5.0); ALBUMIN/GLOBULIN RATIO 0.7 (1.0-2.7); ALKALINE PHOSPHATASE 174 U/L (46-116); ASPARTATE AMINO TRANSFERASE 24 U/L (15-37); BILIRUBIN,TOTAL 0.7 MG/DL (0.2-1.0)
[2018-02-17 17:12] VITALS: BP 147/96
[2018-02-17 18:47] VITALS: BP 156/77
== END 2018-02-17 18:47 | disposition home or self-care (01) ==
LOC: EMR 15:27
DX: K70.30 Alcoholic cirrhosis of liver without ascites (principal); F10.10 Alcohol abuse, uncomplicated
CPT/HCPCS: 36415; 80053; 80307; 80329; 82140; 82550; 83690; 85025; 85610; 85730; 96365; 99284